=== PATIENT | female | born 1935 | race Caucasian/White ===

== ENCOUNTER → 2019-12-19 | Outpatient (REF) | payer MEDICARE, MEDICAID ==
[~2019-12-19] MED LIST: DEPA500T2; FURO40TA2; LUTEIN; OYST500T; PHEN30TA2; POTA10CA2; VITAMIN D50000 UNT
== END ==
LOC: M LAB REF 12:27
PROVIDERS: ATTEND Internal Medicine
DX: D64.9 Anemia, unspecified (principal)

== ENCOUNTER → 2020-06-20 | Outpatient (REF) | payer MEDICARE, MEDICAID ==
[2020-06-20 18:06] LABS: PERCENT SATURATION 51.2 % (13.2-45.0)
== END ==
LOC: M LAB REF 17:21
PROVIDERS: ATTEND Internal Medicine
DX: D50.9 Iron deficiency anemia, unspecified (principal)

== ENCOUNTER → 2020-08-05 | Outpatient (REF) | payer MEDICARE, MEDICAID ==
[2020-08-05 17:09] LABS: PERCENT SATURATION 47.9 % (13.2-45.0)
== END ==
LOC: M LAB REF 16:14
PROVIDERS: ATTEND Internal Medicine
DX: D50.9 Iron deficiency anemia, unspecified (principal)

== ENCOUNTER → 2020-09-05 | Outpatient (REF) | payer MEDICARE, MEDICAID | PROVIDERS: ATTEND Internal Medicine | DX: Z20.828 Contact with and (suspected) exposure to other viral communicable diseases (principal) ==

== ENCOUNTER → 2020-09-10 | Outpatient (REF) | payer MEDICARE, MEDICAID | PROVIDERS: ATTEND Internal Medicine | DX: Z20.828 Contact with and (suspected) exposure to other viral communicable diseases (principal) ==

== ENCOUNTER → 2020-09-15 | Outpatient (REF) | payer MEDICARE, MEDICAID | PROVIDERS: ATTEND Internal Medicine | DX: Z20.828 Contact with and (suspected) exposure to other viral communicable diseases (principal) ==

== ENCOUNTER → 2020-09-22 | Outpatient (REF) | payer MEDICARE, MEDICAID | PROVIDERS: ATTEND Internal Medicine | DX: Z20.828 Contact with and (suspected) exposure to other viral communicable diseases (principal) ==

== ENCOUNTER → 2020-09-29 | Outpatient (REF) | payer MEDICARE, MEDICAID | PROVIDERS: ATTEND Internal Medicine | DX: Z11.52 Encounter for screening for COVID-19 (principal) ==

== ENCOUNTER → 2020-10-06 | Outpatient (REF) | payer MEDICARE, MEDICAID | PROVIDERS: ATTEND Internal Medicine | DX: Z20.822 Contact with and (suspected) exposure to COVID-19 (principal) ==

== ENCOUNTER → 2020-10-13 | Outpatient (REF) | payer MEDICARE, MEDICAID | PROVIDERS: ATTEND Internal Medicine | DX: Z20.822 Contact with and (suspected) exposure to COVID-19 (principal) ==

== ENCOUNTER → 2020-10-20 | Outpatient (REF) | payer MEDICARE, MEDICAID | PROVIDERS: ATTEND Internal Medicine | DX: Z20.822 Contact with and (suspected) exposure to COVID-19 (principal) ==

== ENCOUNTER → 2020-10-27 | Outpatient (REF) | payer MEDICARE, MEDICAID | PROVIDERS: ATTEND Internal Medicine | DX: Z20.822 Contact with and (suspected) exposure to COVID-19 (principal) ==

== ENCOUNTER → 2020-11-03 | Outpatient (REF) | payer MEDICARE, MEDICAID | PROVIDERS: ATTEND Internal Medicine | DX: Z20.822 Contact with and (suspected) exposure to COVID-19 (principal) ==

== ENCOUNTER → 2020-11-10 | Outpatient (REF) | payer MEDICARE, MEDICAID | PROVIDERS: ATTEND Internal Medicine | DX: Z20.822 Contact with and (suspected) exposure to COVID-19 (principal) ==

== ENCOUNTER → 2020-11-27 | Outpatient (REF) | payer MEDICARE, MEDICAID ==
[2020-11-27 09:36] LABS: CALCIUM LEVEL 8.7 MG/DL (8.8-10.2); CREATININE FOR GFR 0.99 MG/DL (0.55-1.30); GLOMERULAR FILTRATION RATE 56.8 (>32); POTASSIUM SERUM 4.7 MEQ/L (3.5-5.1)
== END ==
PROVIDERS: ATTEND Internal Medicine
DX: F01.50 Vascular dementia, unspecified severity, without behavioral disturbance, psychotic disturbance, mood disturbance, and anxiety (principal); I13.0 Hypertensive heart and chronic kidney disease with heart failure and stage 1 through stage 4 chronic kidney disease, or unspecified chronic kidney disease; I50.9 Heart failure, unspecified; N18.9 Chronic kidney disease, unspecified

== ENCOUNTER → 2020-12-08 | Outpatient (REF) | payer MEDICAID, MEDICARE ==
[2020-12-08 09:06] LABS: BLOOD UREA NITROGEN 8 MG/DL (7-18); CALCIUM LEVEL 8.6 MG/DL (8.8-10.2); CARBON DIOXIDE LEVEL 28 MEQ/L (21-32); CHLORIDE LEVEL 95 MEQ/L (98-107); CREATININE FOR GFR 0.94 MG/DL (0.55-1.30); GLOMERULAR FILTRATION RATE > 60.0 (>32); GLUCOSE, FASTING 112 MG/DL (70-100); POTASSIUM SERUM 4.3 MEQ/L (3.5-5.1); SODIUM LEVEL 129 MEQ/L (136-145)
== END ==
PROVIDERS: ATTEND Internal Medicine
DX: Z79.899 Other long term (current) drug therapy (principal)

== ENCOUNTER 2020-12-21 17:51 | Inpatient (IN) | payer MEDICARE, MEDICAID ==
[~2020-12-21] VITALS: Ht 137.2 cm; Wt 69.0 kg
--- NOTE | 2020-12-21 20:33 | REPVR ---
PROCEDURE INFORMATION: Exam: CT Head Without Contrast Exam date and time: 12/21/2020 7:47 PM Age: 85 years old Clinical indication: Altered mental status/memory loss; Additional info: AMS TECHNIQUE: Imaging protocol: Computed tomography of the head without contrast. Radiation optimization: All CT scans at this facility use at least one of these dose optimization techniques: automated exposure control; mA and/or kV adjustment per patient size (includes targeted exams where dose is matched to clinical indication); or iterative reconstruction. COMPARISON: No relevant prior studies available. FINDINGS: Brain: There is advanced cerebral atrophy. Changes of chronic white matter microvascular disease are present. No signs of a recent infarction or hemorrhage. No acute intracranial abnormality. Cerebral ventricles: No ventriculomegaly. Bones/joints: Unremarkable. No acute fracture. Paranasal sinuses: Visualized sinuses are unremarkable. No fluid levels. Mastoid air cells: Visualized mastoid air cells are well aerated. Soft tissues: Unremarkable. IMPRESSION: Atrophy and chronic white matter changes. No acute intracranial abnormality. Electronically signed by: Ousmane Casper On 12/21/2020 20:33:19 PM
[2020-12-21 20:40] LABS: HEMATOCRIT 33.9 % (36.0-47.0); HEMOGLOBIN 11.2 g/dl (12.0-15.5); MEAN CORPUSCULAR HEMOGLOBIN 30.2 pg (27.0-33.0); MEAN CORPUSCULAR VOLUME 91.4 fl (80.0-96.0); PLATELET COUNT, AUTOMATED 265 10^3/uL (150-450); RED BLOOD COUNT 3.71 10^6/uL (4.00-5.40)
[2020-12-21 21:05] LABS: ALT/SGPT 35 U/L (12-78); BILIRUBIN,TOTAL 0.4 MG/DL (0.2-1.0); BLOOD UREA NITROGEN 8 MG/DL (7-18); CALCIUM LEVEL 8.3 MG/DL (8.8-10.2); CARBON DIOXIDE LEVEL 22 MEQ/L (21-32); CHLORIDE LEVEL 94 MEQ/L (98-107); CK-MB VALUE MASS 6.3 NG/ML (<3.6); CPK CREATINE PHOSPHOKINASE 425 U/L (26-192); CREATININE FOR GFR 0.82 MG/DL (0.55-1.30); GLOMERULAR FILTRATION RATE > 60.0 (>32); GLUCOSE, FASTING 85 MG/DL (70-100); MB/CK RELATIVE INDEX 1.48 (< OR =4); POTASSIUM SERUM 4.5 MEQ/L (3.5-5.1); SODIUM LEVEL 124 MEQ/L (136-145); TOTAL PROTEIN 6.6 GM/DL (6.4-8.2); TROPONIN I < 0.02 NG/ML (< 0.10)
[2020-12-21] MEDS ORDERED: OMEG10002 PO (22:27)
[2020-12-21] MEDS ORDERED: D31000TA2 PO (22:27)
[2020-12-21] MEDS ORDERED: FERR32TA PO (22:27)
[2020-12-21] MEDS ORDERED: APAP325T4 PO (22:27)
[2020-12-21] MEDS ORDERED: CARDCAP3 PO (22:27)
[2020-12-21] MEDS ORDERED: PRES10CA2 PO (22:27)
[2020-12-21] MEDS ORDERED: POTA10TA17 PO (22:27)
[2020-12-21] MEDS ORDERED: REFR0.5D8 OU (22:27)
[2020-12-21] MEDS ORDERED: FURO20TA2 PO (22:27)
[2020-12-21] MEDS ORDERED: FLON1SPR NARES (22:27)
[2020-12-21] MEDS ORDERED: ASPI81CH33 PO (22:27)
[2020-12-21] MEDS ORDERED: SENN-23 PO (22:27)
[2020-12-21] MEDS ORDERED: VANI1LOT TOP (22:27)
[2020-12-21] MEDS ORDERED: SPIR-10 PO (22:27)
[2020-12-21] MEDS ORDERED: LOSA25TA14 PO (22:27)
[2020-12-22] MEDS: NS 1,000 ML IV SCH ×3 (01:30→23:44)
[2020-12-22 02:35] LABS: RSV AMPLIFICATION NEGATIVE (NEGATIVE)
[2020-12-22] MEDS ORDERED: LABETALOL 100MG/20ML VIAL IV STA (03:38)
[2020-12-22] MEDS ORDERED: MOM 30ML SUSPENSION UDC PO PRN (04:00)
[2020-12-22] MEDS ORDERED: ACETAMINOPHEN TAB 650MG DOSE (2X325MG) PO PRN (04:00)
[2020-12-22] MEDS ORDERED: CAPTOpril 6.25 MG PER 1/2 TABLET PO ONE (04:00)
[2020-12-22] MEDS ORDERED: MAALOX 30 ML SUSP *UDC PO PRN (04:00)
[2020-12-22 04:17] LABS: OSMOLALITY SERUM 257 MOSM/KG (280-301)
[2020-12-22 05:18] VITALS: BP 191/79
[2020-12-22] MEDS ORDERED: CAPTOpril 3.125 MG PER 1/4 TABLET PO ONE (05:40)
--- NOTE | 2020-12-22 07:08 | HPEPDOC ---
[facility] Medical History & Physical Date of Admission Dec 22, 2020 Date of Service: Dec 22, 2020 Primary Care Physician: MONROE CHEN DO Attending Physician: LUIS ALY MD History and Physical TIME OF SERVICE: 419am CHIEF COMPLAINT: confusion HISTORY OF PRESENT ILLNESS: This 85 yr old F was sent from her NH for evaluation of confusion when compared to her baseline that begun yesterday; apparently the patient had also had a fall 3 days prior and her serum glucose was 155. At the time of my evaluation the patient told me that she didnt know why she was sent from the [place]. She denied having any chest pain, dyspnea or dizziness. Per d/w the ER her SBP was acutely elevated in the 200s so the patient was given Labetalol. 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 FAMILY HISTORY: n/a ALLERGIES: Please see below. HOME MEDICATIONS: Please see below. PHYSICAL EXAMINATION: Vital Signs Date Time Temp Pulse Resp B/P (MAP) Pulse Ox O2 Delivery O2 Flow Rate FiO2 12/21/20 17:57 95.8 81 16 201/84 97 Room Air GENERAL APPEARANCE: well nourished and developed / NAD HEENT: EOMI CARDIOVASCULAR: RRR/NMRG LUNGS: CTAB on RA ABDOMEN: obese / soft & NT INTEGUMENT: not flushed or pale NEUROLOGICAL: CN 2-12 grossly intact / strength 5/5 PSYCHIATRIC: A&O to person and place /able to understand and follow all commands LABORATORY DATA: 12/21/20 19:56 IMAGING: CT head IMPRESSION: Atrophy and chronic white matter changes. No acute intracranial abnormality. EKG showed 1st degree AV block w PVCs MICROBIOLOGY: COVID neg ASSESSMENT: is an 85 yr old [facility] resident w hx of HTN, seizure disorder, osteopenia and macular degeneration and likely dementia was sent from the [place] for eval of encephalopathy. She will be admitted for HTN urgency, acute on chronic hyponatremia and possible confusion. PLAN: 1 Encephalopathy ? I am not sure what the patients baseline is but she was able to tell me where she was and admitted to forgetting frequently It is possible the AMS was due to HTN encephalopathy CT of the head was neg Plan: neurochecks / day time team may consider calling the NH for more info prior to MRI of the brain +/- EEG 2 HTN Urgency Resolved EKG and trop unremarkable She received labetalol and captopril Plan: c/w Furosemide, Losartan, Spironolactone and add Amlodipine 3 Acute on Chronic Hyponatremia Doubt this is the cause of her AMS She is alert and able to talk She has a hx of low Na therefore there is no need to correct quickly Plan: f/u Uosmol, Edie and serum osmol prior to determine the cause and correcting 4 BLAKE Plan: f/u Hg 5 Remote hx of seizures Not no meds 6 Osteopenia Plan: c/w vitamin d DVT px w Lovenox Dispo: home after at least 2 midnights stay Home Medications Scheduled Amlodipine Besylate (Amlodipine Besylate) 2.5 Mg Tablet, 2.5 MG PO DAILY Aspirin (Aspirin) 81 Mg Tab.chew, 81 MG PO QAM Carboxymethylcellulose Sodium (Refresh Tears) 15 Ml Drops, 1 DROP OU QID Cholecalciferol (Vitamin D3) (Vitamin D3) 1,000 Unit Tablet, 1,000 UNITS PO QAM Emollient Combination No.115 (Vanicream) 227 Gm Lotion, 1 DOSE TOP BID LOWER LEGS Ferrous Gluconate (Ferrous Gluconate) 324 Mg Tablet, 324 MG PO Q2D Losartan Potassium (Losartan Potassium) 25 Mg Tablet, 25 MG PO QAM Mv-Min/Folic/Vit K/Lycop/Coq10 (Daily Multivitamin Capsule) 1 Each Capsule, 1 CAP PO QAM [place]-3/Dha/Epa/Fish Oil (Fish Oil 1,000 mg Softgel) 1 Each Capsule, 1 CAP PO QHS Potassium Chloride (Potassium Chloride) 10 Meq Tab.er.prt, 10 MEQ PO QPM Sennosides/Docusate Sodium (Senna-S Tablet) 1 Each Tablet, 1 TAB PO QAM Spironolactone (Spironolactone) 25 Mg Tablet, 12.5 MG PO DAILY Vit C/E/Zn/Coppr/Lutein/Zeaxan (Preservision Areds 2 Softgel) 1 Each Capsule, 2 CAP PO DAILY Scheduled PRN Acetaminophen (Acetaminophen) 325 Mg Tablet, 650 MG PO Q6H PRN for PAIN Fluticasone Propionate (Flonase Allergy Relief) 9.9 Ml [place].susp, 2 SPRAY NARES DAILY PRN for ALLERGIES Allergies Coded Allergies: No Known Allergies (Unverified , 12/21/20) LUIS ALY MD Dec 22, 2020 07:08
[2020-12-22 07:40] VITALS: BP 195/77
[2020-12-22] MEDS ORDERED: FLUTICASONE PROP 0.05% NASAL SPRAY 16 GM (FLONASE) NARES PRN (08:00)
[2020-12-22 08:45] VITALS: BP 148/60
[2020-12-22] MEDS ORDERED: FUROSEMIDE 20 MG TAB PO SCH (09:00)
[2020-12-22] MEDS: ENOXAPARIN 30MG/0.3ML SYRINGE (J1650 PER 10MG) SC SCH (09:33)
[2020-12-22] MEDS: SPIRONOLACTONE 12.5MG PER 1/2 TABLET PO SCH (09:34)
[2020-12-22] MEDS: SENOKOT S TAB PO SCH (09:34)
[2020-12-22 12:00] VITALS: BP 151/69
--- NOTE | 2020-12-22 13:56 | IPNPDOC ---
Text Note Date of Service The patient was seen on 12/22/20. NOTE Patient was seen and examined this morning by me. She's seems like to be at her baseline, conversing nicely and alert, oriented to place and person Physical examination GENERAL APPEARANCE: well nourished and developed / NAD HEENT: EOMI CARDIOVASCULAR: RRR/NMRG LUNGS: CTAB on RA ABDOMEN: obese / soft & NT INTEGUMENT: not flushed or pale NEUROLOGICAL: CN 2-12 grossly intact / strength 5/5 PSYCHIATRIC: A&O to person and place and person /able to understand and follow all commands IMAGING: CT head IMPRESSION: Atrophy and chronic white matter changes. No acute intracra nial abnormality. EKG showed 1st degree AV block w PVCs MICROBIOLOGY: COVID neg Assessment and plan is an 85 yr old [facility] resident w hx of HTN, seizure disorder, osteopenia and macular degeneration and likely dementia was sent from the [place] for eval of encephalopathy. She will be admitted for an hyponatremia Likely Metabolic Secondary to Hyponatremia and Hypertensive Urgency 1. Encephalopathy : Likely metabolic. Could be multifactorial. The patient at the start of November 2020 was having a sodium of 129 and on this admission. The patient had a sodium of 123. This could have been a reason for her encephalopathy. The other reason, could have been. Hypertensive urgency. Other causes like infection, drug-induced have been ruled out. We will address individual cause 2. HTN Urgency: Manual glucose checks showing that the patient's blood pressures in 140s. She has been continued on losartan, Aldactone and amlodipine. Her Lasix has been on hold. We'll continue to monitor. 3. Acute on Chronic Hyponatremia: Serum osmolarity is almost equal to urine osmolarity. Apparently the kidneys are not diluting the urine well. Urine sodium is also in normal range. This likely secondary to diuretic use along with dopplerable low solute intake with normal fluid intake. Currently, the patient has been put on normal saline at 60 mL per hour and the patient's sodium has improved from 123-127. We will continue to hold furosemide at this time. 4 Remote hx of seizures: Outpatient follow-up with PCP Not no meds 5. Osteopenia: Plan: c/w vitamin d The patient has been on Lasix as well as spironolactone and we will look into that reason of these medications. Apparently he does not seem like that she has any congestive heart failure issues. Patient probably will be discharged back to the skilled nursing with Lasix being discontinued. Disposition. Back to the skilled nursing in the next 24 hours VSLeandra, I+O VSLeandra, I+O Laboratory Tests 12/21/20 19:56 12/22/20 12:00 Vital Signs Date Time Temp Pulse Resp B/P (MAP) Pulse Ox O2 Delivery O2 Flow Rate FiO2 12/22/20 12:00 97.4 74 19 151/69 (96) 98 Room Air I&O- Last 24 Hours up to 6 AM 12/22/20 05:59 Intake Total 1000 ml Output Total 850 ml Balance 150 ml MIKE ODOM MD Dec 22, 2020 13:55
[2020-12-22 16:00] VITALS: BP 155/70
--- NOTE | 2020-12-22 19:55 | ECGEPIP ---
[facility] - ED Test Date: 2020-12-21 Pat Name: ARISTEO TOURE Department: Room: [place] [address] Gender: Female [employer]: GURU : 1935 Requested By: Guillermo Kirkpatrick Order Number: [id number] Reading MD: Hannah Acevedo Measurements Intervals [place] Rate: 77 P: 0 FL: 262 QRS: 33 QRSD: 84 T: 44 QT: 362 QTc: 409 Interpretive Statements Sinus rhythm with 1st degree AV block with occasional premature ventricular complexes No prior Electronically Signed on 12-22-2020 19:55:34 EDT by Hannah Acevedo
[2020-12-22 20:00] VITALS: BP 142/69
[2020-12-22] MEDS: OMEGA-3 1000MG CAPSULE PO SCH ×2 (20:03→20:04)
[2020-12-22] MEDS ORDERED: POTASSIUM CHLORIDE 10 MEQ SR TABLET PO SCH (21:00)
[2020-12-23 08:00] VITALS: BP 124/62
[2020-12-23 08:06] LABS: HEMATOCRIT 32.2 % (36.0-47.0); HEMOGLOBIN 10.9 g/dl (12.0-15.5); MEAN CORPUSCULAR HGB CONC 33.9 g/dl (32.0-36.5); MEAN CORPUSCULAR VOLUME 88.7 fl (80.0-96.0); PLATELET COUNT, AUTOMATED 274 10^3/uL (150-450); RED BLOOD COUNT 3.63 10^6/uL (4.00-5.40); WHITE BLOOD COUNT 5.7 10^3/uL (4.0-10.0)
[2020-12-23] MEDS: LOSARTAN 25 MG TAB PO SCH (08:29)
[2020-12-23] MEDS: SPIRONOLACTONE 12.5MG PER 1/2 TABLET PO SCH (08:29)
[2020-12-23] MEDS: SENOKOT S TAB PO SCH (08:29)
[2020-12-23] MEDS: ENOXAPARIN 30MG/0.3ML SYRINGE (J1650 PER 10MG) SC SCH (08:30)
[2020-12-23 08:32] LABS: BLOOD UREA NITROGEN 8 MG/DL (7-18); CALCIUM LEVEL 7.8 MG/DL (8.8-10.2); CARBON DIOXIDE LEVEL 21 MEQ/L (21-32); CHLORIDE LEVEL 99 MEQ/L (98-107); GLOMERULAR FILTRATION RATE > 60.0 (>32); GLUCOSE, FASTING 130 MG/DL (70-100); POTASSIUM SERUM 3.9 MEQ/L (3.5-5.1); SODIUM LEVEL 130 MEQ/L (136-145)
--- NOTE | 2020-12-23 11:22 | IPNPDOC ---
Text Note Date of Service The patient was seen on 12/23/20. NOTE Patient was seen and examined this morning by me. She's seems like to be at her baseline, conversing nicely and alert, oriented to place and person Physical examination GENERAL APPEARANCE: well nourished and developed / NAD HEENT: EOMI CARDIOVASCULAR: RRR/NMRG LUNGS: CTAB on RA ABDOMEN: obese / soft & NT INTEGUMENT: not flushed or pale NEUROLOGICAL: CN 2-12 grossly intact / strength 5/5 PSYCHIATRIC: A&O to person and place and person /able to understand and follow all commands IMAGING: CT head IMPRESSION: Atrophy and chronic white matter changes. No acute intracra nial abnormality. EKG showed 1st degree AV block w PVCs MICROBIOLOGY: COVID neg Assessment and plan is an 85 yr old [facility] resident w hx of HTN, seizure disorder, osteopenia and macular degeneration and likely dementia was sent from the [place] for eval of encephalopathy. She will be admitted for an hyponatremia Likely Metabolic Secondary to Hyponatremia and Hypertensive Urgency 1. Encephalopathy : Improved and now at baseline Likely metabolic. Could be multifactorial. The patient at the start of November 2020 was having a sodium of 129 and on this admission. The patient had a sodium of 123. This could have been a reason for her encephalopathy. The other reason, could have been. Hypertensive urgency. Other causes like infection, drug-induced have been ruled out. We will address individual cause 2. HTN Urgency: Manual glucose checks showing that the patient's blood pr essures in 140s. She has been continued on losartan, Aldactone and amlodipine. Her Lasix has been on hold. We'll continue to monitor. 3. Acute on Chronic Hyponatremia: No improved to 1:30. Serum osmolarity is almost equal to urine osmolarity. Apparently the kidneys are not diluting the urine well. Urine sodium is also in normal range. This likely secondary to diuretic use along with dopplerable low solute intake with normal fluid intake. Currently, the patient has been put on normal saline at 60 mL per hour and the patient's sodium has improved from 123-127. We will continue to hold furosemide at this time. We will also DC fluids today. 4 Remote hx of seizures: Outpatient follow-up with PCP Not no meds 5. Osteopenia: Plan: c/w vitamin d The patient has been on Lasix as well as spironolactone and we will look into that reason of these medications. Apparently he does not seem like that she has any congestive heart failure issues. Patient probably will be discharged back to the [place] [facility] with Lasix being discontinued. Disposition. As PT, OT has seen the patient and the patient probably will require skilled facility. She'll be going back to [facility] hopefully tomorrow VS,Fishbone, I+O VS, Fishbone, I+O Laboratory Tests 12/22/20 12:00 12/22/20 17:55 12/23/20 07:39 Vital Signs Date Time Temp Pulse Resp B/P (MAP) Pulse Ox O2 Delivery O2 Flow Rate FiO2 12/23/20 08:30 71 124/62 12/23/20 08:00 98.3 18 98 Room Air I&O- Last 24 Hours up to 6 AM 12/23/20 05:59 Intake Total 2528 ml Output Total 800 ml Balance 1728 ml MIKE ODOM MD Dec 23, 2020 11:22
[2020-12-23 12:00] VITALS: BP 160/82
[2020-12-23 16:00] VITALS: BP 148/78
[2020-12-23 20:00] VITALS: BP 204/70
[2020-12-23] MEDS: OMEGA-3 1000MG CAPSULE PO SCH (20:07)
[2020-12-23] MEDS ORDERED: LABETALOL 100MG/20ML VIAL IV STA (20:18)
[2020-12-23 21:44] VITALS: BP 160/72
[2020-12-24 04:11] VITALS: BP 158/60
[2020-12-24 08:00] VITALS: BP 120/50
[2020-12-24] MEDS: ENOXAPARIN 30MG/0.3ML SYRINGE (J1650 PER 10MG) SC SCH (08:36)
[2020-12-24] MEDS: SENOKOT S TAB PO SCH (08:36)
[2020-12-24 08:37] VITALS: BP 120/50
[2020-12-24] MEDS: LOSARTAN 25 MG TAB PO SCH (08:37)
[2020-12-24] MEDS: SPIRONOLACTONE 12.5MG PER 1/2 TABLET PO SCH (08:38)
[2020-12-24] MEDS ORDERED: AMLO25TA PO (10:39)
--- NOTE | 2020-12-24 11:04 | DS.PDOC ---
Discharge Summary General Date of Admission Dec 22, 2020 at 04:00 Date of Discharge 12/24/20 Discharge Summary Chief complaints: Alteration in mental status Final diagnosis 1. Symptomatic hyponatremia 2. Alteration in mental status History of present illness and Hospital course is an 85 yr old [facility] resident w hx of HTN, seizure disorder, osteopenia and macular degeneration and likely dementia was sent from the [place] for eval of encephalopathy. She will be admitted for an encephalopathy likely Metabolic Secondary to Hyponatremia and Hypertensive Urgency. For her Encephalopathy : Improved and now at baseline Likely metabolic. Could be multifactorial. The patient at the start of November 2020 was having a sodium of 129 and on this admission. The patient had a sodium of 123. This could have been a reason for her encephalopathy. The other reason, could have been. Hypertensive urgency. Other causes like infection, drug-induced have been ruled out. We addressed individual cause. For her HTN urgency: Manual pressure checks showing that the patient's blood pressures in 140s. She has been continued on losartan, Aldactone and amlodipine has been admitted. Her Lasix has been on hold, and currently has been discontinued on discharge. For her acute on chronic Hyponatremia: Now improved to 130. Serum osmolarity is almost equal to urine osmolarity. Apparently the kidneys are not diluting the urine well. Urine sodium is also in normal range. This likely secondary to diuretic use along with probable low solute intake with normal fluid intake. Currently, the patient was put on normal saline at 60 mL per hour and the patient's sodium has improved from 123-130. We will continue to hold furosemide at this time. I have conveyed this message to Dr. Escobedo who will be the accepting physician at [facility] regarding the medication changes and to see if the patient would require continuation of Lasix. The patient was also evaluated by PT, OT and they recommended the patient to go to skilled facility rather than the assisted site. The patient is medically optimized for discharge Physical examination GENERAL APPEARANCE: well nourished and developed / NAD HEENT: EOMI CARDIOVASCULAR: RRR/NMRG LUNGS: CTAB on RA ABDOMEN: obese / soft & NT INTEGUMENT: not flushed or pale NEUROLOGICAL: CN 2-12 grossly intact / strength 5/5 PSYCHIATRIC: A&O to person and place and person /able to understand and follow all commands IMAGING: CT head IMPRESSION: Atrophy and chronic white matter changes. No acute intracranial abnormality. EKG showed 1st degree AV block w PVCs MICROBIOLOGY: COVID neg Medictations. As per discharge reconciliation medication list. Lasix has been discontinued Activity as tolerated Diet. 2 g sodium diet Follow-up appointments. PCP in 1 week. Condition on discharge. Patient is medically optimized for discharge Discharge disposition: SS Total time spent on this discharge including coordination of care, review of chart documentation and actual patient contact is around 35 minutes Vital Signs/I&Os Vital Signs Date Time Temp Pulse Resp B/P (MAP) Pulse Ox O2 Delivery O2 Flow Rate FiO2 12/24/20 08:37 81 120/50 12/24/20 08:00 97.2 20 98 Room Air I&O- Last 24 Hours up to 6 AM 12/24/20 06:00 Intake Total 1020 ml Output Total 600 ml Balance 420 ml Laboratory Data CBC/BMP Laboratory Tests 12/23/20 12:12 Microbiology Microbiology 12/21/20 Blood Culture - Preliminary, Resulted No Growth after 48 hours. All Specime... Discharge Medications Scheduled Amlodipine Besylate (Amlodipine Besylate) 2.5 Mg Tablet, 2.5 MG PO DAILY Aspirin (Aspirin) 81 Mg Tab.chew, 81 MG PO QAM, (Reported) Carboxymethylcellulose Sodium (Refresh Tears) 15 Ml Drops, 1 DROP OU QID, (Reported) Cholecalciferol (Vitamin D3) (Vitamin D3) 1,000 Unit Tablet, 1,000 UNITS PO QAM, (Reported) Emollient Combination No.115 (Vanicream) 227 Gm Lotion, 1 DOSE TOP BID, (Reported) LOWER LEGS Ferrous Gluconate (Ferrous Gluconate) 324 Mg Tablet, 324 MG PO Q2D, (Reported) Losartan Potassium (Losartan Potassium) 25 Mg Tablet, 25 MG PO QAM, (Reported) Mv-Min/Folic/Vit K/Lycop/Coq10 (Daily Multivitamin Capsule) 1 Each Capsule, 1 CAP PO QAM, (Reported) [place]-3/Dha/Epa/Fish Oil (Fish Oil 1,000 mg Softgel) 1 Each Capsule, 1 CAP PO QHS, (Reported) Potassium Chloride (Potassium Chloride) 10 Meq Tab.er.prt, 10 MEQ PO QPM, (Reported) Sennosides/Docusate Sodium (Senna-S Tablet) 1 Each Tablet, 1 TAB PO QAM, (Reported) Spironolactone (Spironolactone) 25 Mg Tablet, 12.5 MG PO DAILY, (Reported) Vit C/E/Zn/Coppr/Lutein/Zeaxan (Preservision Areds 2 Softgel) 1 Each Capsule, 2 CAP PO DAILY, (Reported) Scheduled PRN Acetaminophen (Acetaminophen) 325 Mg Tablet, 650 MG PO Q6H PRN for PAIN, (Reported) Fluticasone Propionate (Flonase Allergy Relief) 9.9 Ml [place].susp, 2 SPRAY NARES DAILY PRN for ALLERGIES, (Reported) Allergies Coded Allergies: No Known Allergies (Unverified , 12/21/20) MIKE ODOM MD Dec 24, 2020 11:04
== END 2020-12-24 11:44 | DRG 71 ==
LOC: EDBD 17:51 → M ED 17:51 → M PCU 12-22 04:00 → M ED INP 12-22 04:00 → ENRESERV 12-22 04:28 → M PCU 12-22 05:07
PROVIDERS: ADMIT Internal Medicine; ATTEND Internal Medicine
DX: G93.41 Metabolic encephalopathy (principal); E87.1 Hypo-osmolality and hyponatremia; I16.0 Hypertensive urgency; M85.80 Other specified disorders of bone density and structure, unspecified site; H35.30 Unspecified macular degeneration; D50.9 Iron deficiency anemia, unspecified; F03.90 Unspecified dementia, unspecified severity, without behavioral disturbance, psychotic disturbance, mood disturbance, and anxiety; I44.0 Atrioventricular block, first degree; Z86.69 Personal history of other diseases of the nervous system and sense organs; Z20.822 Contact with and (suspected) exposure to COVID-19; Z79.899 Other long term (current) drug therapy; Z98.42 Cataract extraction status, left eye; Z98.41 Cataract extraction status, right eye; Z66 Do not resuscitate

== ENCOUNTER → 2021-01-06 | Outpatient (REF) ==
[~2021-01-06] MED LIST changes: +AMLO25TA PO; +APAP325T4 PO; +ASPI81CH33 PO; +CARDCAP3 PO; +D31000TA2 PO; +FERR32TA PO; +FLON1SPR NARES; +FURO20TA2 PO; +LOSA25TA14 PO; +OMEG10002 PO; +POTA10TA17 PO; +PRES10CA2 PO; +REFR0.5D8 OU; +SENN-23 PO; +SPIR-10 PO; +VANI1LOT TOP
== END ==
PROVIDERS: ATTEND Internal Medicine
DX: Z20.822 Contact with and (suspected) exposure to COVID-19 (principal)

== ENCOUNTER → 2021-01-13 | Outpatient (REF) | payer MEDICARE, MEDICAID ==
[~2021-01-13] MED LIST changes: +ASPI81TA26 PO; +BENE1POW5 PO; +KEPP250T5 PO; +LASI20TA3 PO; +LEVE250T5 PO; +MILKSUS3 PO; +SENN1TAB41 PO; +VITMTA PO
== END ==
PROVIDERS: ATTEND Internal Medicine
DX: Z20.822 Contact with and (suspected) exposure to COVID-19 (principal)

== ENCOUNTER 2021-01-18 06:54 | Emergency (ER) | payer MEDICARE, MEDICAID ==
[~2021-01-18] VITALS: Ht 157.5 cm; Wt 62.3 kg
[~2021-01-18 06:54] MED LIST changes: -ASPI81TA26 PO; -BENE1POW5 PO; -KEPP250T5 PO; -LASI20TA3 PO; -LEVE250T5 PO; -MILKSUS3 PO; -SENN1TAB41 PO; -VITMTA PO
[2021-01-18 07:28] LABS: BASO % 0.5 % (0.0-1.0); EOS % 0.6 % (0.0-3.0); HEMATOCRIT 35.1 % (36.0-47.0); HEMOGLOBIN 11.4 g/dl (12.0-15.5); LYMPH # 0.8 10^3/uL (1.5-5.0); LYMPH % 11.8 % (24.0-44.0); MEAN CORPUSCULAR HEMOGLOBIN 29.5 pg (27.0-33.0); MEAN CORPUSCULAR HGB CONC 32.5 g/dl (32.0-36.5); MEAN CORPUSCULAR VOLUME 90.9 fl (80.0-96.0); MONO # 0.6 10^3/uL (0.0-0.8); MONO % 8.7 % (2.0-8.0); NEUTROPHILS # 5.1 10^3/uL (1.5-8.5); NEUTROPHILS % 78.1 % (36.0-66.0); PLATELET COUNT, AUTOMATED 289 10^3/uL (150-450); RED BLOOD COUNT 3.86 10^6/uL (4.00-5.40); WHITE BLOOD COUNT 6.6 10^3/uL (4.0-10.0)
[2021-01-18] MEDS ORDERED: ASPI81TA26 PO (07:41)
[2021-01-18] MEDS ORDERED: LASI20TA3 PO (07:41)
[2021-01-18] MEDS ORDERED: BENE1POW5 PO (07:41)
[2021-01-18] MEDS ORDERED: SENN1TAB41 PO (07:41)
[2021-01-18] MEDS ORDERED: VITMTA PO (07:41)
[2021-01-18] MEDS ORDERED: MILKSUS3 PO (07:41)
[2021-01-18] MEDS ORDERED: SENN-23 PO (07:41)
[2021-01-18] MEDS ORDERED: LOSARTAN 25 MG TAB PO ONE (07:50)
[2021-01-18] MEDS ORDERED: FUROSEMIDE 20 MG TAB PO ONE (07:50)
[2021-01-18] MEDS ORDERED: SPIRONOLACTONE 12.5MG PER 1/2 TABLET PO ONE (07:50)
[2021-01-18 07:58] LABS: ALT/SGPT 21 U/L (12-78); BILIRUBIN,DIRECT 0.1 MG/DL (0.0-0.2); BILIRUBIN,TOTAL 0.4 MG/DL (0.2-1.0); BLOOD UREA NITROGEN 9 MG/DL (7-18); CALCIUM LEVEL 8.3 MG/DL (8.8-10.2); CARBON DIOXIDE LEVEL 25 MEQ/L (21-32); CHLORIDE LEVEL 95 MEQ/L (98-107); CK-MB VALUE MASS 1.8 NG/ML (<3.6); CPK CREATINE PHOSPHOKINASE 52 U/L (26-192); CREATININE FOR GFR 0.86 MG/DL (0.55-1.30); GLOMERULAR FILTRATION RATE > 60.0 (>32); GLUCOSE, FASTING 103 MG/DL (70-100); MB/CK RELATIVE INDEX 3.46 (< OR =4); POTASSIUM SERUM 4.3 MEQ/L (3.5-5.1); SODIUM LEVEL 129 MEQ/L (136-145); TOTAL PROTEIN 6.6 GM/DL (6.4-8.2); TROPONIN I < 0.02 NG/ML (< 0.10)
[2021-01-18 08:01] VITALS: BP 184/79
[2021-01-18 08:05] LABS: APPEARANCE, URINE CLEAR (CLEAR); BACTERIA, URINE AUTO NEGATIVE (NEGATIVE); BILIRUBIN, URINE AUTO NEGATIVE (NEGATIVE); BLOOD, URINE BLOOD NEGATIVE (NEGATIVE); COLOR, URINE YELLOW (YELLOW); GLUCOSE, URINE (UA) AUTO NEGATIVE (NEGATIVE); KETONE, URINE AUTO TRACE mg/dL (NEGATIVE); LEUKOCYTE ESTERASE, URINE AUTO TRACE (NEGATIVE); MUCUS, URINE SMALL (NEGATIVE); NITRITE, URINE AUTO NEGATIVE (NEGATIVE); PROTEIN, URINE AUTO 1+ mg/dL (NEGATIVE); RBC, URINE AUTO 1 /HPF (0-3); SPECIFIC GRAVITY URINE AUTO 1.011 (1.002-1.035); SQUAMOUS EPITHELIAL CELL UR AU 0 /HPF (0-6); UROBILINOGEN, URINE AUTO 0.2 mg/dL (0.0-2.0); WBC, URINE AUTO 8 /HPF (0-3)
--- NOTE | 2021-01-18 08:22 | REPVR ---
PROCEDURE INFORMATION: Exam: CT Head Without Contrast Exam date and time: 01/18/2021 7:47 AM Age: 85 years old Clinical indication: Altered mental status/memory loss; Confusion or disorientation; Additional info: AMS TECHNIQUE: Imaging protocol: Computed tomography of the head without contrast. Radiation optimization: All CT scans at this facility use at least one of these dose optimization techniques: automated exposure control; mA and/or kV adjustment per patient size (includes targeted exams where dose is matched to clinical indication); or iterative reconstruction. COMPARISON: CT Head without contrast 12/21/2020 7:47 PM FINDINGS: Brain: There is low attenuation abnormality in the periventricular white matter consistent with chronic microvascular ischemic changes. There are chronic lacunar infarcts. There is moderate cerebral atrophy. Cerebral ventricles: No ventriculomegaly. Bones/joints: Unremarkable. No acute fracture. Paranasal sinuses: Visualized sinuses are unremarkable. No fluid levels. Mastoid air cells: Visualized mastoid air cells are well aerated. Vasculature: There is moderate intracranial vascular calcification. Soft tissues: Unremarkable. IMPRESSION: 1. There is low attenuation abnormality in the periventricular white matter consistent with chronic microvascular ischemic changes. If an acute infarct is a clinical concern, follow-up MRI with diffusion imaging is recommended. 2. There are chronic lacunar infarcts. 3. There is moderate cerebral atrophy. Electronically signed by: Randall Rojas On 01/18/2021 08:21:35 AM
[2021-01-18] MEDS ORDERED: KEPP250T5 PO (09:59)
[2021-01-18] MEDS ORDERED: levETIRAcetam INJection 250 MG in D5W MINI-BAG PLUS 100 ML IV ONE (10:00)
[2021-01-18 10:53] VITALS: BP 178/74
--- NOTE | 2021-01-18 11:52 | ECGEPIP ---
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
[2021-01-19] MEDS ORDERED: LEVE250T5 PO (14:07)
== END 2021-01-18 10:55 | disposition home or self-care (01) ==
LOC: M ED 06:54
DX: R40.4 Transient alteration of awareness (principal); I10 Essential (primary) hypertension; F03.90 Unspecified dementia, unspecified severity, without behavioral disturbance, psychotic disturbance, mood disturbance, and anxiety

== ENCOUNTER 2021-01-19 13:14 | Inpatient (IN) | payer MEDICARE, MEDICAID ==
[~2021-01-19] VITALS: Ht 157.5 cm; Wt 58.5 kg
[~2021-01-19 13:14] MED LIST changes: +ASPI81TA26 PO; +BENE1POW5 PO; +KEPP250T5 PO; +LASI20TA3 PO; +MILKSUS3 PO; +SENN1TAB41 PO; +VITMTA PO
[2021-01-19] MEDS ORDERED: LEVE250T5 PO (14:07)
--- NOTE | 2021-01-19 14:14 | REP ---
INDICATION: Altered Mental Status. COMPARISON: Comparison CT studies are from January 18, 2021 and December 21, 2020.. TECHNIQUE: Helical scanning is acquired. 5 mm axial images were reformatted. Coronal MPR images were generated. FINDINGS: Bone window settings demonstrate an intact bony calvarium. There is no evidence of skull fracture or incidental bony calvarial lesion. The visualized paranasal sinuses appear clear. No intraorbital abnormality is seen. On soft tissue window setting images; the lateral, third, and fourth ventricles are normal in size and position. Francis-white differentiation pattern is normal above and below the tentorium. There are is no evidence of intracranial hemorrhage. No mass, edema, infarction, or midline shift is seen. No extra-axial fluid collection is appreciated. Vascular calcification is noted in the distal internal carotid arteries bilaterally. There is advanced generalized volume loss. Old encephalomalacia is evident in the left frontal lobe consistent with an 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 This is unchanged from comparison CT studies. There are small vessel atherosclerotic changes. IMPRESSION: Old left frontal lobe infarct. Advanced generalized volume loss. Small vessel changes and vascular calcification. No acute intracranial abnormality.. <Electronically signed by Benja Hoskins > 01/19/21 [id number]
[2021-01-19 14:20] LABS: BASO % 0.3 % (0.0-1.0); EOS # 0.1 10^3/uL (0.0-0.5); EOS % 1.4 % (0.0-3.0); HEMATOCRIT 35.6 % (36.0-47.0); HEMOGLOBIN 11.7 g/dl (12.0-15.5); LYMPH # 1.1 10^3/uL (1.5-5.0); LYMPH % 16.8 % (24.0-44.0); MEAN CORPUSCULAR HEMOGLOBIN 30.3 pg (27.0-33.0); MEAN CORPUSCULAR HGB CONC 32.9 g/dl (32.0-36.5); MEAN CORPUSCULAR VOLUME 92.2 fl (80.0-96.0); MONO # 0.8 10^3/uL (0.0-0.8); NEUTROPHILS # 4.3 10^3/uL (1.5-8.5); NEUTROPHILS % 68.2 % (36.0-66.0); PLATELET COUNT, AUTOMATED 272 10^3/uL (150-450); RED BLOOD COUNT 3.86 10^6/uL (4.00-5.40); WHITE BLOOD COUNT 6.3 10^3/uL (4.0-10.0)
--- NOTE | 2021-01-19 14:30 | REP ---
INDICATION: Altered Mental Status. COMPARISON: Comparison chest radiograph April 08, 2010. TECHNIQUE: Portable upright AP chest radiograph. FINDINGS: Monitoring electrodes are visible. The lungs are symmetrically somewhat underinflated but free of infiltrate. There is linear fibrosis in the left perihilar region unchanged. There is diffuse osteopenia. Heart size is borderline. Thoracic aorta is tortuous.. IMPRESSION: No acute infiltrates seen. Linear fibrosis left perihilar region. Borderline heart size. Otherwise no acute disease.. <Electronically signed by Benja Hoskins > 01/19/21 [id number]
[2021-01-19 15:10] LABS: ACETAMINOPHEN LEVEL < 2.0 UG/ML (10.0-30.0); ALT/SGPT 21 U/L (12-78); BILIRUBIN,DIRECT 0.1 MG/DL (0.0-0.2); BILIRUBIN,TOTAL 0.3 MG/DL (0.2-1.0); BLOOD UREA NITROGEN 10 MG/DL (7-18); CALCIUM LEVEL 8.6 MG/DL (8.8-10.2); CARBON DIOXIDE LEVEL 28 MEQ/L (21-32); CHLORIDE LEVEL 96 MEQ/L (98-107); CK-MB VALUE MASS 2.6 NG/ML (<3.6); CPK CREATINE PHOSPHOKINASE 73 U/L (26-192); CREATININE FOR GFR 1.08 MG/DL (0.55-1.30); ETHYL ALCOHOL (ETHANOL) < 0.003 % (0.000-0.010); GLOMERULAR FILTRATION RATE 51.3 (>32); GLUCOSE, FASTING 95 MG/DL (70-100); MB/CK RELATIVE INDEX 3.56 (< OR =4); POTASSIUM SERUM 4.2 MEQ/L (3.5-5.1); SALICYLATE LEVEL < 1.7 MG/DL (5.0-30.0); SODIUM LEVEL 130 MEQ/L (136-145); TOTAL PROTEIN 6.5 GM/DL (6.4-8.2); TROPONIN I < 0.02 NG/ML (< 0.10)
[2021-01-19] MEDS ORDERED: ISOVUE-370 76% 100ML VIAL As Ordered ONE (15:51)
[2021-01-19 16:03] LABS: AMPHETAMINES LEVEL URINE NEGATIVE (NEGATIVE); BARBITURATES URINE NEGATIVE (NEGATIVE); BENZODIAZEPINES URINE NEGATIVE (NEGATIVE); CANNABINOIDS URINE NEGATIVE (NEGATIVE); COCAINE METABOLITE URINE NEGATIVE (NEGATIVE); METHADONE URINE NEGATIVE (NEGATIVE); OPIATES URINE NEGATIVE (NEGATIVE); PHENCYCLIDINE URINE NEGATIVE (NEGATIVE)
--- NOTE | 2021-01-19 17:34 | HPEPDOC ---
General Date of Admission 01/19/21 Date of Service: Jan 19, 2021 Chief Complaint The patient is a 85-year-old female admitted with a reason for visit of [facility]. Source: RN/, Old records History of Present Illness 85-year-old female from [facility] assisted living has been having altered mental status since January 18 morning. Patient does have mild dementia but at baseline is alert, oriented 3 and is able to ambulate without any assistive device. Yesterday morning she was noted to be confused and was sent to the emergency room. In the ED, she had workup and and was felt that she had transient "global amnesia versus an episode of unwitnessed seizure as her Keppra was stopped 1 week ago. She was loaded with Keppra and sent back to the assisted living. , However, patient continued to be confused, incontinent of urine, unable to do any of her ADLs. Staff at the assisted living felt that she was not any better compared to the morning of January 18, so she was sent back to the ED for evaluation. In the ED on initial evaluation by the ED physician. She could say hello and she responded to her name, but other than that, she was confused, did not know where she was what was the month or year. On performing NIH strokes evaluation. She scored 5. ED physician felt she could have a altered mental status and possible stroke. CT scan in the ED showed old left frontal lobe encephalomalacia consistent with old infarct. To the hospitalist was consulted for admission. On my exam, patient was nonresponsive to voice or shaking. She did wake up on sternal rub and said "ouh ouh "went back to sleep. She would not allow me to open her eyes, which she was forcibly keeping closed could be taken from the patient on history is taken from ED physician and chart review Home Medications Scheduled Aspirin (Aspirin EC) 81 Mg Tablet.dr, 81 MG PO DAILY, (Reported) Carboxymethylcellulose Sodium (Refresh Tears) 15 Ml Drops, 1 DROP OU QID, (Reported) Cholecalciferol (Vitamin D3) (Vitamin D3) 1,000 Unit Tablet, 1,000 UNITS PO DAILY, (Reported) Emollient Combination No.115 (Vanicream) 227 Gm Lotion, 1 DOSE TOP BID, (Reported) LOWER LEGS Ferrous Gluconate (Ferrous Gluconate) 324 Mg Tablet, 324 MG PO Q2D, (Reported) Furosemide (Lasix) 20 Mg Tablet, 20 MG PO DAILY, (Reported) Levetiracetam (Levetiracetam) 250 Mg Tablet, 250 MG PO BID, (Reported) NEW RX FROM 01/18/21 - HAS NOT STARTED YET Losartan Potassium (Losartan Potassium) 25 Mg Tablet, 25 MG PO DAILY, (Reported) Multivitamins (Thera M Plus Tablet) 1 Each Tablet, 1 TAB PO DAILY, (Reported) Bryant-3/Dha/Epa/Fish Oil (Fish Oil 1,000 mg Softgel) 1 Each Capsule, 1 CAP PO QHS, (Reported) Potassium Chloride (Potassium Chloride) 10 Meq Tab.er.prt, 10 MEQ PO QHS, (Reported) Sennosides/Docusate Sodium (Senna-S Tablet) 1 Each Tablet, 2 TAB PO QHS, (Reported) Sennosides/Docusate Sodium (Senna-S Tablet) 1 Each Tablet, 1 TAB PO QAM, (Reported) Spironolactone (Spironolactone) 25 Mg Tablet, 12.5 MG PO DAILY, (Reported) Vit C/E/Zn/Coppr/Lutein/Zeaxan (Preservision Areds 2 Softgel) 1 Each Capsule, 2 CAP PO DAILY, (Reported) Wheat Dextrin (Benefiber) 1 Each Powd.pack, 1 POW PO QHS, (Reported) Scheduled PRN Acetaminophen (Acetaminophen) 325 Mg Tablet, 650 MG PO Q6H PRN for PAIN, (Reported) Fluticasone Propionate (Flonase Allergy Relief) 9.9 Ml [place].susp, 1 SPRAY NARES DAILY PRN for ALLERGIES, (Reported) Magnesium Hydroxide (Milk of Magnesia) 400 Mg/5 Ml Oral.susp, 30 ML PO DAILY PRN for CONSTIPATION, (Reported) Allergies Coded Allergies: No Known Allergies (Unverified , 12/21/20) Past Medical History Medical History Chronic Hyponatremia Essential HTN Dementia Remote hx of Seizure disorder (per consult note April 08 2010 no seizures for 20 yrs) Osteopenia 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 Family History unable to get very confused patient Social History * Smoker: Denies Alcohol: Denies Drugs: denies A-FIB/CHADSVASC A-FIB History Current/History of A-Fib/PAF?: No Review of Systems Other systems No review of systems couldn't be done due to patient being nonresponsive Physical Examination General Exam: Positive: No Acute Distress, Other (responsive only to pain, laying in position) ENT Exam: Positive: Atraumatic Neck Exam: Positive: Supple; Negative: JVD, thyromegaly Chest Exam: Positive: Clear to auscultation, Normal air movement Heart Exam: Positive: Rate Normal, Regular Rhythm, Normal S1, Normal S2; Negative: Murmurs, Rubs Telemetry: Positive: No significant arrhythmia Abdomen Exam: Positive: Normal bowel sounds, Soft; Negative: Tenderness Extremity Exam: Negative: Clubbing, Cyanosis, Edema Vital Signs Vital Signs Date Time Temp Pulse Resp B/P (MAP) Pulse Ox O2 Delivery O2 Flow Rate FiO2 01/19/21 16:22 66 18 199/84 (122) 99 Room Air 01/19/21 13:27 97.8 Laboratory Data Labs 24H Laboratory Tests 2 01/19/21 13:44: Immature Granulocyte % (Auto) 0.3, Neutrophils (%) (Auto) 68.2H, Lymphocytes (%) (Auto) 16.8L, Monocytes (%) (Auto) 13.0H, Eosinophils (%) (Auto) 1.4, Basophils (%) (Auto) 0.3, Neutrophils # (Auto) 4.3, Lymphocytes # (Auto) 1.1L, Monocytes # (Auto) 0.8, Eosinophils # (Auto) 0.1, Basophils # (Auto) 0.0, Nucleated Red Blood Cells % (auto) 0.0, Anion Gap 6L, Glomerular Filtration Rate 51.3, Lactic Acid Level 1.6, Calcium Level 8.6L, Total Bilirubin 0.3, Direct Bilirubin 0.1, Aspartate Amino Transf (AST/SGOT) 21, Alanine Aminotransferase (ALT/SGPT) 21, Alkaline Phosphatase 97, Ammonia 29, Total Creatine Kinase 73, Creatine Kinase MB 2.6, Creatine Kinase MB Relative Index 3.56, Troponin I < 0.02, Total Protein 6.5, Albumin 3.0L, Albumin/Globulin Ratio 0.9L, Thyroid Stimulating Hormone (TSH) 1.260, Salicylates Level < 1.7L, Acetaminophen Level < 2.0L, Ethyl Alcohol Level < 0.003 01/19/21 15:26: Urine Color YELLOW, Urine Appearance HAZY, Urine pH 7.0, Urine Specific [place] 1.005, Urine Protein NEGATIVE, Urine Glucose (UA) NEGATIVE, Urine Ketones NEGATIVE, Urine Blood NEGATIVE, Urine Nitrite NEGATIVE, Urine Bilirubin NEGATIVE, Urine Urobilinogen 0.2, Urine Leukocyte Esterase 2+H, Urine WBC (Auto) 13H, Urine RBC (Auto) 2, Urine Hyaline Casts (Auto) 1, Urine Bacteria (Auto) 1+H, Urine Squamous Epithelial Cells 0, Urine Sperm (Auto) , Urine Opiates Screen NEGATIVE, Urine Methadone Screen NEGATIVE, Urine Barbiturates Screen NEGA TIVE, Urine Phencyclidine Screen NEGATIVE, Urine Amphetamines Screen NEGATIVE, Urine Benzodiazepines Screen NEGATIVE, Urine Cocaine Metabolite Screen NEGATIVE, Urine Cannabinoids Screen NEGATIVE CBC/BMP Laboratory Tests 01/19/21 13:44 Microbiology Microbiology 01/19/21 Urine Culture, Received Pending 01/19/21 Respiratory Virus Panel (PCR) ([facility]) - Final, Complete 01/19/21 Blood Culture, Received Pending 01/19/21 Blood Culture, Received Pending Assessment/Plan 85-year-old female from [facility] assisted [facility] has been having altered mental status since January 18 morning. Patient does have mild dementia but at baseline is alert, oriented 3 and is able to ambulate without any assistive device. Y morning she was noted to be confused and was sent to the emergency room. In the ED, she had workup and and was felt that she had transient "global amnesia versus an episode of unwitnessed seizure as her Keppra was stopped 1 week ago. She was loaded with Keppra and sent back to the assisted living. , However, patient continued to be confused, incontinent of urine, unable to do any of her ADLs. Staff at the [facility] felt that she was not any better compared to the morning of January 18, so she was sent back to the ED for evaluation. In the ED on initial evaluation by the ED physician. She could say hello and she responded to her name, but other than that, she was confused, did not know where she was what was the month or year. On performing NIH strokes evaluation. She scored 5. ED physician felt she could have a altered mental status and possible stroke. CT scan in the ED showed old left frontal lobe encephalomalacia consistent with old infarct. To the hospitalist was consulted for admission. Altered mental status Acute metabolic encephalopathy on the background of dementia Rule out stroke Rule out unwitnessed seizure with postictal state MRI and MRA has been ordered Will get EEG No Signs of infection Continue aspirin Hypertension We will allow for permissive hypertension Continue losartan Seizure disorder Keppra Chronic hyponatremia Sodium at 130, which is about her baseline Will hold diuretics for now Plan / VTE VTE Prophylaxis Ordered?: Yes BLANK BERNAL MD Jan 19, 2021 16:53
[2021-01-19] MEDS: **hydrALAZINE HCL** 25 MG TAB PO SCH (18:11)
[2021-01-19] MEDS ORDERED: cloNIDine 0.1MG TABLET PO ONE (18:35)
[2021-01-19 20:13] VITALS: BP 176/70
--- NOTE | 2021-01-19 20:21 | ECGEPIP ---
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
[2021-01-19] MEDS: SENOKOT S TAB PO SCH (22:33)
[2021-01-19] MEDS: levETIRAcetam 250MG TABLET (KEPPRA) PO SCH (22:33)
[2021-01-19 22:34] VITALS: BP 139/63
[2021-01-20] VITALS (8 sets, daily range): BP systolic 143–173; BP diastolic 58–77
[2021-01-20] MEDS ORDERED: levETIRAcetam INJection 250 MG in D5W MINI-BAG PLUS 100 ML IV ONE (01:45)
[2021-01-20 05:38] LABS: BASO % 0.5 % (0.0-1.0); EOS # 0.2 10^3/uL (0.0-0.5); EOS % 3.1 % (0.0-3.0); HEMATOCRIT 32.5 % (36.0-47.0); HEMOGLOBIN 10.6 g/dl (12.0-15.5); LYMPH # 1.3 10^3/uL (1.5-5.0); LYMPH % 21.9 % (24.0-44.0); MEAN CORPUSCULAR HEMOGLOBIN 29.7 pg (27.0-33.0); MEAN CORPUSCULAR HGB CONC 32.6 g/dl (32.0-36.5); MONO # 0.8 10^3/uL (0.0-0.8); MONO % 13.5 % (2.0-8.0); NEUTROPHILS # 3.5 10^3/uL (1.5-8.5); NEUTROPHILS % 60.7 % (36.0-66.0); PLATELET COUNT, AUTOMATED 249 10^3/uL (150-450); RED BLOOD COUNT 3.57 10^6/uL (4.00-5.40); WHITE BLOOD COUNT 5.7 10^3/uL (4.0-10.0)
[2021-01-20] MEDS: **hydrALAZINE HCL** 25 MG TAB PO SCH ×5 (05:45→23:44)
[2021-01-20 06:06] LABS: BLOOD UREA NITROGEN 9 MG/DL (7-18); CALCIUM LEVEL 7.8 MG/DL (8.8-10.2); CARBON DIOXIDE LEVEL 25 MEQ/L (21-32); CHLORIDE LEVEL 99 MEQ/L (98-107); CREATININE FOR GFR 0.81 MG/DL (0.55-1.30); GLOMERULAR FILTRATION RATE > 60.0 (>32); GLUCOSE, FASTING 83 MG/DL (70-100); POTASSIUM SERUM 3.9 MEQ/L (3.5-5.1); SODIUM LEVEL 132 MEQ/L (136-145)
[2021-01-20] MEDS: levETIRAcetam 250MG TABLET (KEPPRA) PO SCH ×2 (08:35→21:26)
[2021-01-20] MEDS: ASPIRIN 81MG ENTERIC TABLET PO SCH (08:36)
[2021-01-20] MEDS: SENOKOT S TAB PO SCH ×2 (08:36→21:26)
[2021-01-20] MEDS: LOSARTAN 25 MG TAB PO SCH (08:37)
--- NOTE | 2021-01-20 10:41 | IPNPDOC ---
Subjective Date Seen The patient was seen on 01/20/21. Subjective Chief Complaint/HPI As per ED staff last evening after admission she was punching kicking and using foul language with the nurses and Aids. Then she did settle down by herself. Overnight she was incontinent but took her medications this morning. She is now awake and alert only talks when she wants to. I asker her if she wanted the milk. She replied "not the milk, the juice and banana.". But she would not look at me , would not greet me or answer other questions. Objective Physical Examination General Exam: Positive: Alert, No Acute Distress, Other (sitting up eating breakfast , talking only when she wants, not answering questions.) ENT Exam: Positive: Atraumatic Neck Exam: Positive: Supple; Negative: JVD, thyromegaly Chest Exam: Positive: Clear to auscultation, Normal air movement Heart Exam: Positive: Rate Normal, Regular Rhythm, Normal S1, Normal S2; Negative: Murmurs, Rubs Telemetry: Positive: No significant arrhythmia Abdomen Exam: Positive: Normal bowel sounds, Soft; Negative: Tenderness Extremity Exam: Negative: Clubbing, Cyanosis, Edema Assessment /Plan Assessment 85-year-old female from [facility] assisted [facility] has been having altered mental status since January 18 morning. Patient does have mild dementia but at baseline is alert, oriented 3 and is able to ambulate without any assistive device. Yesterday morning she was noted to be confused and was sent to the emergency room. In the ED, she had workup and and was felt that she had transient "global amnesia versus an episode of unwitnessed seizure as her Keppra was stopped 1 week ago. She was loaded with Keppra and sent back to the assisted living. , However, patient continued to be confused, incontinent of urine, unable to do any of her ADLs. Staff at the [facility] felt that she was not any better compared to the morning of January 18, so she was sent back to the ED for evaluation. In the ED on initial evaluation by the ED physician. She could say hello and she responded to her name, but other than that, she was confused, did not know where she was what was the month or year. On performing NIH strokes evaluation. She scored 5. ED physician felt she could have a altered mental status and possible stroke. CT scan in the ED showed old left frontal lobe encephalomalacia consistent with old infarct. To the hospitalist was consulted for admission. Altered mental status Acute metabolic encephalopathy on the background of dementia Rule out stroke Rule out unwitnessed seizure with postictal state MRI and MRA has been ordered Will get EEG No Signs of infection Continue aspirin Hypertension We will allow for permissive hypertension Continue losartan Seizure disorder Keppra Chronic hyponatremia Sodium at 132, which is her baseline Will hold diuretics for now Plan/VTE VTE Prophylaxis Ordered?: Yes VS, I&O, 24H, Fishbone Vital Signs/I&O Vital Signs Date Time Temp Pulse Resp B/P (MAP) Pulse Ox O2 Delivery O2 Flow Rate FiO2 01/20/21 08:37 164/72 01/20/21 08:00 97.3 62 8 100 Room Air I&O- Last 24 Hours up to 6 AM 01/20/21 05:59 Intake Total 0 ml Balance 0 ml Laboratory Data 24H LABS Laboratory Tests 2 01/19/21 13:44: Immature Granulocyte % (Auto) 0.3, Neutrophils (%) (Auto) 68.2H, Lymphocytes (%) (Auto) 16.8L, Monocytes (%) (Auto) 13.0H, Eosinophils (%) (Auto) 1.4, Basophils (%) (Auto) 0.3, Neutrophils # (Auto) 4.3, Lymphocytes # (Auto) 1.1L, Monocytes # (Auto) 0.8, Eosinophils # (Auto) 0.1, Basophils # (Auto) 0.0, Nucleated Red Blood Cells % (auto) 0.0, Anion Gap 6L, Glomerular Filtration Rate 51.3, Lactic Acid Level 1.6, Calcium Level 8.6L, Total Bilirubin 0.3, Direct Bilirubin 0.1, Aspartate Amino Transf (AST/SGOT) 21, Alanine Aminotransferase (ALT/SGPT) 21, Alkaline Phosphatase 97, Ammonia 29, Total Creatine Kinase 73, Creatine Kinase MB 2.6, Creatine Kinase MB Relative Index 3.56, Troponin I < 0.02, Total Protein 6.5, Albumin 3.0L, Albumin/Globulin Ratio 0.9L, Thyroid Stimulating Hormone (TSH) 1.260, Salicylates Level < 1.7L, Acetaminophen Level < 2.0L, Ethyl Alcohol Level < 0.003 01/19/21 15:26: Urine Color YELLOW, Urine Appearance HAZY, Urine pH 7.0, Urine Specific [place] 1.005, Urine Protein NEGATIVE, Urine Glucose (UA) NEGATIVE, Urine Ketones NEGATIVE, Urine Blood NEGATIVE, Urine Nitrite NEGATIVE, Urine Bilirubin NEGATIVE, Urine Urobilinogen 0.2, Urine Leukocyte Esterase 2+H, Urine WBC (Auto) 13H, Urine RBC (Auto) 2, Urine Hyaline Casts (Auto) 1, Urine Bacteria (Auto) 1+H, Urine Squamous Epithelial Cells 0, Urine Sperm (Auto) , Urine Opiates Screen NEGATIVE, Urine Methadone Screen NEGATIVE, Urine Barbiturates Screen NEGATIVE, Urine Phencyclidine Screen NEGATIVE, Urine Amphetamines Screen NEGATIVE, Urine Benzodiazepines Screen NEGATIVE, Urine Cocaine Metabolite Screen NEGATIVE, Urine Cannabinoids Screen NEGATIVE 01/20/21 05:24: Immature Granulocyte % (Auto) 0.3, Neutrophils (%) (Auto) 60.7, Lymphocytes (%) (Auto) 21.9L, Monocytes (%) (Auto) 13.5H, Eosinophils (%) (Auto) 3.1H, Basophils (%) (Auto) 0.5, Neutrophils # (Auto) 3.5, Lymphocytes # (Auto) 1.3L, Monocytes # (Auto) 0.8, Eosinophils # (Auto) 0.2, Basophils # (Auto) 0.0, Nucleated Red Blood Cells % (auto) 0.0, Anion Gap 8, Glomerular Filtration Rate > 60.0, Calcium Level 7.8L CBC/BMP Laboratory Tests 01/19/21 13:44 01/20/21 05:24 Microbiology Microbiology 01/19/21 Urine Culture, Received Pending 01/19/21 Respiratory Virus Panel (PCR) ([facility]) - Final, Complete 01/19/21 Blood Culture, Received Pending 01/19/21 Blood Culture, Received Pending BLANK BERNAL MD Jan 20, 2021 10:41
[2021-01-20] MEDS ORDERED: LORazepam 2 MG/ML VIAL IV ONE (12:00)
--- NOTE | 2021-01-20 21:47 | REPVR ---
PROCEDURE INFORMATION: Exam: MR Head Without Contrast Exam date and time: 01/20/2021 5:15 PM Age: 85 years old Clinical indication: Altered mental status/memory loss; Age related cognitive decline; Additional info: AMS TECHNIQUE: Imaging protocol: MR of the head without contrast. COMPARISON: CT Head without contrast 01/19/2021 1:57 PM FINDINGS: Brain: Multiple foci of T2 lengthening are demonstrated in the subcortical, periventricular, centrum semiovale and pontine white matter consistent with age-related small vessel gliosis. Moderate to severe parenchymal atrophy. There is moderate diffuse cerebellar atrophy. No acute ischemia demonstrated. Large focus of macrocystic encephalomalacia in the left frontoparietal region consistent with a prior infarct. Cerebral ventricles: Normal. No ventriculomegaly. Bones/joints: Unremarkable. Paranasal sinuses: Normal as visualized. No acute sinusitis. Mastoid air cells: Normal as visualized. No mastoid effusion. Orbital cavity: Unremarkable. Soft tissues: Unremarkable. IMPRESSION: 1. Multiple foci of T2 lengthening are demonstrated in the subcortical, periventricular, centrum semiovale and pontine white matter consistent with age-related small vessel gliosis. 2. Moderate to severe parenchymal atrophy. 3. There is moderate diffuse cerebellar atrophy. 4. Large focus of macrocystic encephalomalacia in the left frontoparietal region consistent with a prior infarct. 5. No acute intracranial findings. Electronically signed by: Joey Ruiz On 01/20/2021 21:47:15 PM
--- NOTE | 2021-01-20 21:49 | REPVR ---
PROCEDURE INFORMATION: Exam: MRA Head Without Contrast; Arteriography Exam date and time: 01/20/2021 5:15 PM Age: 85 years old Clinical indication: Cognitive deficit; Age-related cognitive decline; Additional info: AMS TECHNIQUE: Imaging protocol: Magnetic resonance angiography head without contrast. Exam focused on the arteries. COMPARISON: CT Head without contrast 01/19/2021 1:57 PM FINDINGS: ANTERIOR CIRCULATION: Right internal carotid artery: Luminal irregularity right cavernous carotid artery consistent with atherosclerosis. No high-grade stenosis. Right middle cerebral artery: No occlusion or significant stenosis. No aneurysm. 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 Left internal carotid artery: Luminal irregularity left cavernous carotid artery consistent with atherosclerosis. No high-grade stenosis. Left middle cerebral artery: No occlusion or significant stenosis. No aneurysm. Left anterior cerebral artery: No occlusion or significant stenosis. No aneurysm. POSTERIOR CIRCULATION: Right vertebral artery: No occlusion or significant stenosis. No aneurysm. Left vertebral artery: No occlusion or significant stenosis. No aneurysm. Basilar artery: No occlusion or significant stenosis. No aneurysm. Right posterior cerebral artery: No occlusion or significant stenosis. No aneurysm. Left posterior cerebral artery: No occlusion or significant stenosis. No aneurysm. IMPRESSION: 1. 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 2. [id number] atherosclerotic changes in the cavernous carotid arteries. 3. No vascular occlusion demonstrated. Electronically signed by: Joey Ruiz On 01/20/2021 21:49:20 PM
[2021-01-21] MEDS: **hydrALAZINE HCL** 25 MG TAB PO SCH ×3 (05:44→17:01)
[2021-01-21 06:00] VITALS: BP 160/73
[2021-01-21 06:13] LABS: BASO % 0.7 % (0.0-1.0); EOS # 0.2 10^3/uL (0.0-0.5); EOS % 2.7 % (0.0-3.0); HEMATOCRIT 34.9 % (36.0-47.0); HEMOGLOBIN 11.4 g/dl (12.0-15.5); LYMPH % 17.3 % (24.0-44.0); MEAN CORPUSCULAR HGB CONC 32.7 g/dl (32.0-36.5); MEAN CORPUSCULAR VOLUME 91.8 fl (80.0-96.0); MONO # 0.7 10^3/uL (0.0-0.8); MONO % 12.3 % (2.0-8.0); NEUTROPHILS # 3.7 10^3/uL (1.5-8.5); NEUTROPHILS % 66.6 % (36.0-66.0); PLATELET COUNT, AUTOMATED 271 10^3/uL (150-450); WHITE BLOOD COUNT 5.6 10^3/uL (4.0-10.0)
[2021-01-21 06:36] LABS: BLOOD UREA NITROGEN 8 MG/DL (7-18); CALCIUM LEVEL 7.9 MG/DL (8.8-10.2); CARBON DIOXIDE LEVEL 25 MEQ/L (21-32); CHLORIDE LEVEL 101 MEQ/L (98-107); GLOMERULAR FILTRATION RATE > 60.0 (>32); GLUCOSE, FASTING 82 MG/DL (70-100); POTASSIUM SERUM 4.1 MEQ/L (3.5-5.1); SODIUM LEVEL 133 MEQ/L (136-145)
[2021-01-21] MEDS: ASPIRIN 81MG ENTERIC TABLET PO SCH (08:21)
[2021-01-21] MEDS: LOSARTAN 25 MG TAB PO SCH (08:21)
[2021-01-21] MEDS: levETIRAcetam 250MG TABLET (KEPPRA) PO SCH ×2 (08:21→20:09)
[2021-01-21] MEDS: SENOKOT S TAB PO SCH ×2 (08:21→20:10)
--- NOTE | 2021-01-21 12:37 | IPNPDOC ---
Subjective Date Seen The patient was seen on 01/21/21. Subjective Chief Complaint/HPI Patient had not voided for 24 hours in the hospital. Bladder scan showed 1200 cc. Straight cath produced 1600 cc last night. I think she will need to be discharged with a Yanes. Today we will bladder scan BID and st cath if > 300 cc. This am she is sitting in the chair pleasant and cooperative, awake and alert but oriented x 1. Had breakfast by herself. She has not voided this am yet. Objective Physical Examination General Exam: Positive: Alert, Cooperative, No Acute Distress, Other (oriented x 1) Eye Exam: Positive: Conjunctiva & lids normal, EOMI ENT Exam: Positive: Atraumatic, Mucous membr. moist/pink Neck Exam: Positive: Supple; Negative: JVD, thyromegaly Chest Exam: Positive: Clear to auscultation, Normal air movement Heart Exam: Positive: Rate Normal, Regular Rhythm, Normal S1, Normal S2; Negative: Murmurs, Rubs Telemetry: Positive: No significant arrhythmia Abdomen Exam: Positive: Normal bowel sounds, Soft; Negative: Tenderness Extremity Exam: Negative: Clubbing, Cyanosis, Edema Assessment /Plan Assessment 85-year-old female from [facility] assisted living has been having altered mental status since January 18 morning. Patient does have mild dementia but at baseline is alert, oriented 3 and is able to ambulate without any assistive device. Yesterday morning she was noted to be confused and was sent to the emergency room. In the ED, she had workup and and was felt that she had transient "global amnesia versus an episode of unwitnessed seizure as her Keppra was stopped 1 week ago. She was loaded with Keppra and sent back to the assisted living. , However, patient continued to be confused, incontinent of urine, unable to do any of her ADLs. Staff at the [facility] felt that she was not any better compared to the morning of January 18, so she was sent back to the ED for evaluation. In the ED on initial evaluation by the ED physician. She could say hello and she responded to her name, but other than that, she was confused, did not know where she was what was the month or year. On performing NIH strokes evaluation. She scored 5. ED physician felt she could have a altered mental status and possible stroke. CT scan in the ED showed old left frontal lobe encephalomalacia consistent with old infarct. To the hospitalist was consulted for admission. Altered mental status Acute metabolic encephalopathy on the background of dementia MRi no acute stroke, Shows old large frontal encephalomalacia and diffuse chronic microvascular changes EEG done. No Signs of infection Continue aspirin She had acute urinary retention this may be the reason for acute metabolic encephalopathy which seems to be resolving. No urine infection She also has advancing dementia so I think she would do better in LTC than assisted living. Acute urinary retention Had 1600 cc on straight cath will likely need to go to NH with yanes Hypertension Continue losartan Seizure disorder Keppra restarted. Chronic hyponatremia Sodium at 132, which is her baseline Will hold diuretics for now Plan/VTE VTE Prophylaxis Ordered?: Yes VS, I&O, 24H, Fishbone Vital Signs/I&O Vital Signs Date Time Temp Pulse Resp B/P (MAP) Pulse Ox O2 Delivery O2 Flow Rate FiO2 01/21/21 12:00 138/68 01/21/21 06:00 97.2 79 18 98 Room Air I&O- Last 24 Hours up to 6 AM 01/21/21 06:00 Intake Total 170 ml Balance 170 ml Laboratory Data 24H LABS Laboratory Tests 2 01/21/21 05:52: Immature Granulocyte % (Auto) 0.4, Neutrophils (%) (Auto) 66.6H, Lymphocytes (%) (Auto) 17.3L, Monocytes (%) (Auto) 12.3H, Eosinophils (%) (Auto) 2.7, Basophils (%) (Auto) 0.7, Neutrophils # (Auto) 3.7, Lymphocytes # (Auto) 1.0L, Monocytes # (Auto) 0.7, Eosinophils # (Auto) 0.2, Basophils # (Auto) 0.0, Nucleated Red Blood Cells % (auto) 0.0, Anion Gap 7L, Glomerular Filtration Rate > 60.0, Calcium Level 7.9L CBC/BMP Laboratory Tests 01/21/21 05:52 Microbiology Microbiology 01/19/21 Urine Culture - Final, Complete 01/19/21 Respiratory Virus Panel (PCR) ([facility]) - Final, Complete 01/19/21 Blood Culture - Preliminary, Resulted No growth after 24 hours . All specim... 01/19/21 Blood Culture - Preliminary, Resulted No growth after 24 hours . All specim... BLANK BERNAL MD Jan 21, 2021 12:37
--- NOTE | 2021-01-21 12:43 | EEG ---
ELECTROENCEPHALOGRAM DATE: 01/20/2021 DIAGNOSIS: Altered mental status. EEG# [id number]. REFERRING PHYSICIAN: Dinorah Cazares MD HISTORY: Patient is an 85-year-old woman who was admitted at [facility] due to altered mental status. She had an episode of transient global amnesia versus an episode of unwitnessed seizure as her Keppra was stopped a week ago. This EEG was done to rule out epileptic potential. She is currently taking hydralazine, Keppra, aspirin, Levetiracetam, clonidine, etc. TECHNICAL DESCRIPTION: This digital EEG was recorded by 21-scalp, ear, and two EKG electrodes and was reviewed in bipolar and referential montages following reformatting in 10-20 international electrode placement system. INTERPRETATION: Patient was noted to be mostly in asleep state. Background rhythm consisted of 7.5-8 Hz theta activity measuring 15-40 microvolts in amplitude, which was symmetric bilaterally. Stage 1 and 2 sleep were reviewed and were symmetric bilaterally. Hyperventilation was not performed. Photic stimulation remained unremarkable. EKG revealed irregular heart beat with PACs, few PVCs. Atrial fibrillation could not be ruled out. Left central, parietal, and temporal sharp and slow wave complexes were noted infrequently. CONCLUSION: This EEG in awake, drowsy, stage 1 and 2 sleep is abnormal due to presence of infrequent left central, parietal, and temporal epileptiform discharges consistent with focal cortical structure or functional abnormality with epileptic potential. In addition, minimal slowing of background likely indicates mild diffuse cerebellar dysfunction such as seen in mild encephalopathy. Clinical correlation is recommended.
[2021-01-21 14:30] VITALS: BP 142/70
[2021-01-21 22:00] VITALS: BP 118/67
[2021-01-22] MEDS: **hydrALAZINE HCL** 25 MG TAB PO SCH ×4 (05:03→17:06)
[2021-01-22 06:00] VITALS: BP 164/78
[2021-01-22 07:01] LABS: BASO % 0.7 % (0.0-1.0); EOS # 0.2 10^3/uL (0.0-0.5); EOS % 3.1 % (0.0-3.0); HEMOGLOBIN 11.6 g/dl (12.0-15.5); LYMPH % 18.1 % (24.0-44.0); MEAN CORPUSCULAR HEMOGLOBIN 29.7 pg (27.0-33.0); MEAN CORPUSCULAR HGB CONC 33.1 g/dl (32.0-36.5); MEAN CORPUSCULAR VOLUME 89.7 fl (80.0-96.0); MONO # 0.8 10^3/uL (0.0-0.8); MONO % 14.5 % (2.0-8.0); NEUTROPHILS # 3.5 10^3/uL (1.5-8.5); NEUTROPHILS % 63.2 % (36.0-66.0); PLATELET COUNT, AUTOMATED 261 10^3/uL (150-450); WHITE BLOOD COUNT 5.5 10^3/uL (4.0-10.0)
[2021-01-22 07:19] LABS: BLOOD UREA NITROGEN 9 MG/DL (7-18); CALCIUM LEVEL 8.6 MG/DL (8.8-10.2); CARBON DIOXIDE LEVEL 26 MEQ/L (21-32); CHLORIDE LEVEL 99 MEQ/L (98-107); CREATININE FOR GFR 0.74 MG/DL (0.55-1.30); GLOMERULAR FILTRATION RATE > 60.0 (>32); GLUCOSE, FASTING 95 MG/DL (70-100); POTASSIUM SERUM 3.9 MEQ/L (3.5-5.1); SODIUM LEVEL 132 MEQ/L (136-145)
[2021-01-22] MEDS: SENOKOT S TAB PO SCH ×2 (09:55→19:57)
[2021-01-22] MEDS: ASPIRIN 81MG ENTERIC TABLET PO SCH (09:55)
[2021-01-22] MEDS: levETIRAcetam 250MG TABLET (KEPPRA) PO SCH ×2 (09:55→20:00)
[2021-01-22] MEDS: LOSARTAN 25 MG TAB PO SCH (10:02)
--- NOTE | 2021-01-22 13:18 | IPNPDOC ---
Subjective Date Seen The patient was seen on 01/22/21. Subjective Chief Complaint/HPI She is very pleasant sitting up in chair ambulating to bathroom with walker with Aid. remains confused but follows commands and can have a simple conversation. She still does not know where she is and where she lives. Objective Physical Examination General Exam: Positive: Alert, Cooperative, No Acute Distress, Other (oriented x 1) Eye Exam: Positive: Conjunctiva & lids normal, EOMI ENT Exam: Positive: Atraumatic, Mucous membr. moist/pink Neck Exam: Positive: Supple; Negative: JVD, thyromegaly Chest Exam: Positive: Clear to auscultation, Normal air movement Heart Exam: Positive: Rate Normal, Regular Rhythm, Normal S1, Normal S2; Negative: Murmurs, Rubs Telemetry: Positive: No significant arrhythmia Abdomen Exam: Positive: Normal bowel sounds, Soft; Negative: Tenderness Extremity Exam: Negative: Clubbing, Cyanosis, Edema Assessment /Plan Assessment 85-year-old female from [facility] assisted living has been having altered mental status since January 18 morning. Patient does have mild dementia but at baseline is alert, oriented 3 and is able to ambulate without any assistive device. Yesterday morning she was noted to be confused and was sent to the emergency room. In the ED, she had workup and and was felt that she had transient "global amnesia versus an episode of unwitnessed seizure as her Keppra was stopped 1 week ago. She was loaded with Keppra and sent back to the assisted [facility]. , However, patient continued to be confused, incontinent of urine, unable to do any of her ADLs. Staff at the [facility] felt that she was not any better compared to the morning of January 18, so she was sent back to the ED for evaluation. In the ED on initial evaluation by the ED physician. She could say hello and she responded to her name, but other than that, she was confused, did not know where she was what was the month or year. On performing NIH strokes evaluation. She scored 5. ED physician felt she could have a altered mental status and possible stroke. CT scan in the ED showed old left frontal lobe encephalomalacia consistent with old infarct. To the hospitalist was consulted for admission. Acute metabolic encephalopathy on the background of dementia Looks like she was she may have been having seizures with post ictal state. EEG in awake, drowsy, stage 1 and 2 sleep is abnormal due to presence of infrequent left central, parietal, and temporal epileptiform discharges consistent with focal cortical structure or functional abnormality with epileptic potential. In addition, minimal slowing of background likely indicates mild diffuse cerebellar dysfunction such as seen in mild encephalopathy. MRI no acute stroke, Shows old large frontal encephalomalacia and diffuse chronic microvascular changes No Signs of infection Continue aspirin She also had acute urinary retention this may have worsened the acute metabolic encephalopathy which seems to be resolving. No urine infection She also has advancing dementia so I think she would do better in LTC than assisted living. Acute urinary retention Had 1600 cc on straight cath May need to go to NH with yanes Hypertension Continue losartan Seizure disorder Keppra restarted. Chronic hyponatremia Sodium at 132, which is her baseline Will hold diuretics for now Plan/VTE VTE Prophylaxis Ordered?: Yes VS, I&O, 24H, Fishbone Vital Signs/I&O Vital Signs Date Time Temp Pulse Resp B/P (MAP) Pulse Ox O2 Delivery O2 Flow Rate FiO2 01/22/21 11:40 128/70 01/22/21 06:00 97.1 89 16 97 Room Air I&O- Last 24 Hours up to 6 AM 01/22/21 06:00 Intake Total 1330 ml Output Total 1900 ml Balance -570 ml Laboratory Data 24H LABS Laboratory Tests 2 01/22/21 06:28: Immature Granulocyte % (Auto) 0.4, Neutrophils (%) (Auto) 63.2, Lymphocytes (%) (Auto) 18.1L, Monocytes (%) (Auto) 14.5H, Eosinophils (%) (Auto) 3.1H, Basophils (%) (Auto) 0.7, Neutrophils # (Auto) 3.5, Lymphocytes # (Auto) 1.0L, Monocytes # (Auto) 0.8, Eosinophils # (Auto) 0.2, Basophils # (Auto) 0.0, Nucleated Red Blood Cells % (auto) 0.0, Anion Gap 7L, Glomerular Filtration Rate > 60.0, Calcium Level 8.6L CBC/BMP Laboratory Tests 01/22/21 06:28 Microbiology Microbiology 01/19/21 Urine Culture - Final, Complete 01/19/21 Respiratory Virus Panel (PCR) ([facility]) - Final, Complete 01/19/21 Blood Culture - Preliminary, Resulted No Growth after 48 hours. All Specime... 01/19/21 Blood Culture - Preliminary, Resulted No Growth after 48 hours. All Specime... BLANK BERNAL MD Jan 22, 2021 13:18
[2021-01-22 14:00] VITALS: BP 143/84
[2021-01-22 22:00] VITALS: BP 142/63
[2021-01-23] MEDS: **hydrALAZINE HCL** 25 MG TAB PO SCH ×3 (00:37→12:00)
[2021-01-23 06:00] VITALS: BP 146/64
[2021-01-23] MEDS ORDERED: LEVE250T5 PO (07:33)
[2021-01-23 07:36] LABS: BASO % 0.7 % (0.0-1.0); EOS # 0.2 10^3/uL (0.0-0.5); EOS % 4.5 % (0.0-3.0); HEMOGLOBIN 11.1 g/dl (12.0-15.5); LYMPH # 1.1 10^3/uL (1.5-5.0); MEAN CORPUSCULAR HEMOGLOBIN 29.8 pg (27.0-33.0); MEAN CORPUSCULAR HGB CONC 32.6 g/dl (32.0-36.5); MEAN CORPUSCULAR VOLUME 91.2 fl (80.0-96.0); MONO # 0.6 10^3/uL (0.0-0.8); MONO % 14.5 % (2.0-8.0); NEUTROPHILS # 2.4 10^3/uL (1.5-8.5); NEUTROPHILS % 55.1 % (36.0-66.0); PLATELET COUNT, AUTOMATED 272 10^3/uL (150-450); RED BLOOD COUNT 3.73 10^6/uL (4.00-5.40); WHITE BLOOD COUNT 4.4 10^3/uL (4.0-10.0)
[2021-01-23 08:05] LABS: BLOOD UREA NITROGEN 8 MG/DL (7-18); CALCIUM LEVEL 8.4 MG/DL (8.8-10.2); CARBON DIOXIDE LEVEL 28 MEQ/L (21-32); CHLORIDE LEVEL 97 MEQ/L (98-107); CREATININE FOR GFR 0.74 MG/DL (0.55-1.30); GLOMERULAR FILTRATION RATE > 60.0 (>32); GLUCOSE, FASTING 87 MG/DL (70-100); POTASSIUM SERUM 4.6 MEQ/L (3.5-5.1); SODIUM LEVEL 131 MEQ/L (136-145)
[2021-01-23] MEDS: SENOKOT S TAB PO SCH (08:12)
[2021-01-23] MEDS: levETIRAcetam 250MG TABLET (KEPPRA) PO SCH (08:12)
[2021-01-23] MEDS: ASPIRIN 81MG ENTERIC TABLET PO SCH (08:14)
[2021-01-23] MEDS: LOSARTAN 25 MG TAB PO SCH (08:14)
--- NOTE | 2021-01-23 11:24 | DS.PDOC ---
Discharge Summary General Date of Admission Jan 19, 2021 at 17:15 Date of Discharge 01/23/21 Discharge Summary PROCEDURES PERFORMED DURING STAY: [None]. 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 COMPLICATIONS/CHIEF COMPLAINT: AMS. HOSPITAL COURSE: 85-year-old female from [facility] assisted living has been having altered mental status since January 18 morning. Patient does have mild dementia but at baseline is alert, oriented 3 and is able to ambulate without any assistive device. Yesterday morning she was noted to be confused and was sent to the emergency room. In the ED, she had workup and and was felt that she had transient "global amnesia versus an episode of unwitnessed seizure as her Keppra was stopped 1 week ago. She was loaded with Keppra and sent back to the assisted living. , However, patient continued to be confused, incontinent of uri ne, unable to do any of her ADLs. Staff at the assisted living felt that she was not any better compared to the morning of January 18, so she was sent back to the ED for evaluation. In the ED on initial evaluation by the ED physician. She could say hello and she responded to her name, but other than that, she was confused, did not know where she was what was the month or year. On performing NIH strokes evaluation. She scored 5. ED physician felt she could have a altered mental status and possible stroke. CT scan in the ED showed old left frontal lobe encephalomalacia consistent with old infarct. To the hospitalist was consulted for admission. Acute metabolic encephalopathy on the background of dementia Looks like she was she may have been having seizures with post ictal state. EEG in awake, drowsy, stage 1 and 2 sleep is abnormal due to presence of infrequent left central, parietal, and temporal epileptiform discharges consistent with focal cortical structure or functional abnormality with epileptic potential. In addition, minimal slowing of background likely indicates mild diffuse cerebellar dysfunction such as seen in mild encephalopathy. MRI no acute stroke, Shows old large frontal encephalomalacia and diffuse chronic microvascular changes No Signs of infection Continue aspirin She also had acute urinary retention this may have worsened the acute metabolic encephalopathy which seems to be resolving. No urine infection She also has advancing dementia so I think she would do better in LTC than assisted living. Likely developmental disability Seizure from childhood. after discussion with Niece i found out that patient has been in NH/ assisted living since 1970s when she was in her 40s. Before that patient used to live with her parents. Patient was not able to finish school as it was too difficult for her. After the patient's parents passed she had tried living alone but she could not manage so had to be placed in NH by her older sister Yadi who is the mother of niece Zari. Zari remembers about 40 to 50 years ago when she was a child her aunt Meli (patient) used to have seizures often. Acute urinary retention Had 1600 cc on straight cath May need to go to NH with yanes Hypertension Continue losartan Seizure disorder Keppra dose increased after discussion with DR Saima Brown recommends keppra for life and EEG shows structural or functional abnormality on the left cortex which has seizure potential. Chronic hyponatremia Sodium at 132, which is her baseline Will hold diuretics for now DISCHARGE MEDICATIONS: Please see below. ALLERGIES: Please see below. PHYSICAL EXAMINATION ON DISCHARGE: VITAL SIGNS: Please see below. General Exam: Positive: Alert, Cooperative, No Acute Distress, Other (oriented x 1) Eye Exam: Positive: Conjunctiva & lids normal, EOMI ENT Exam: Positive: Atraumatic, Mucous membr. moist/pink Neck Exam: Positive: Supple; Negative: JVD, thyromegaly Chest Exam: Positive: Clear to auscultation, Normal air movement Heart Exam: Positive: Rate Normal, Regular Rhythm, Normal S1, Normal S2; Negative: Murmurs, Rubs Telemetry: Positive: No significant arrhythmia Abdomen Exam: Positive: Normal bowel sounds, Soft; Negative: Tenderness Extremity Exam: Negative: Clubbing, Cyanosis, Edema LABORATORY DATA: Please see below. ACTIVITY: [As tolerated]. DIET: As tolerated DISPOSITION: [facility] skilled DISCHARGE INSTRUCTIONS: Referral to Dr Brown in 2 weeks for seizures. Follow up with MD in NH DISCHARGE CONDITION: [Stable]. TIME SPENT ON DISCHARGE: 35 minutes. Vital Signs/I&Os Vital Signs Date Time Temp Pulse Resp B/P (MAP) Pulse Ox O2 Delivery O2 Flow Rate FiO2 4/30/21 08:14 136/62 01/23/21 06:00 97.1 63 16 97 Room Air I&O- Last 24 Hours up to 6 AM 01/23/21 06:00 Intake Total 580 ml Output Total 100 ml Balance 480 ml Laboratory Data Labs 24H Laboratory Tests 2 01/23/21 07:18: Immature Granulocyte % (Auto) 0.2, Neutrophils (%) (Auto) 55.1, Lymphocytes (%) (Auto) 25.0, Monocytes (%) (Auto) 14.5H, Eosinophils (%) (Auto) 4.5H, Basophils (%) (Auto) 0.7, Neutrophils # (Auto) 2.4, Lymphocytes # (Auto) 1.1L, Monocytes # (Auto) 0.6, Eosinophils # (Auto) 0.2, Basophils # (Auto) 0.0, Nucleated Red Blood Cells % (auto) 0.0, Anion Gap 6L, Glomerular Filtration Rate > 60.0, Calcium Level 8.4L 01/23/21 09:22: Coronavirus (COVID-19)(PCR) NEGATIVE CBC/BMP Laboratory Tests 01/23/21 07:18 Microbiology Microbiology 01/19/21 Urine Culture - Final, Complete 01/19/21 Respiratory Virus Panel (PCR) ([facility]) - Final, Complete 01/19/21 Blood Culture - Preliminary, Resulted No Growth after 72 hours. All specime... 01/19/21 Blood Culture - Preliminary, Resulted No Growth after 72 hours. All specime... Discharge Medications Scheduled Aspirin (Aspirin EC) 81 Mg Tablet.dr, 81 MG PO DAILY, (Reported) Carboxymethylcellulose Sodium (Refresh Tears) 15 Ml Drops, 1 DROP OU QID, (Reported) Cholecalciferol (Vitamin D3) (Vitamin D3) 1,000 Unit Tablet, 1,000 UNITS PO DAILY, (Reported) Emollient Combination No.115 (Vanicream) 227 Gm Lotion, 1 DOSE TOP BID, (Reported) LOWER LEGS Ferrous Gluconate (Ferrous Gluconate) 324 Mg Tablet, 324 MG PO Q2D, (Reported) Furosemide (Lasix) 20 Mg Tablet, 20 MG PO DAILY, (Reported) Levetiracetam (Levetiracetam) 250 Mg Tablet, 500 MG PO BID NEW RX FROM 4/25/21 - HAS NOT STARTED YET Losartan Potassium (Losartan Potassium) 25 Mg Tablet, 25 MG PO DAILY, (Reported) Multivitamins (Thera M Plus Tablet) 1 Each Tablet, 1 TAB PO DAILY, (Reported) Atwood-3/Dha/Epa/Fish Oil (Fish Oil 1,000 mg Softgel) 1 Each Capsule, 1 CAP PO QHS, (Reported) Potassium Chloride (Potassium Chloride) 10 Meq Tab.er.prt, 10 MEQ PO QHS, (Reported) Sennosides/Docusate Sodium (Senna-S Tablet) 1 Each Tablet, 2 TAB PO QHS, (Reported) Sennosides/Docusate Sodium (Senna-S Tablet) 1 Each Tablet, 1 TAB PO QAM, (Reported) Spironolactone (Spironolactone) 25 Mg Tablet, 12.5 MG PO DAILY, (Reported) Vit C/E/Zn/Coppr/Lutein/Zeaxan (Preservision Areds 2 Softgel) 1 Each Capsule, 2 CAP PO DAILY, (Reported) Wheat Dextrin (Benefiber) 1 Each Powd.pack, 1 POW PO QHS, (Reported) Scheduled PRN Acetaminophen (Acetaminophen) 325 Mg Tablet, 650 MG PO Q6H PRN for PAIN, (Report ed) Fluticasone Propionate (Flonase Allergy Relief) 9.9 Ml Hammett.susp, 1 SPRAY NARES DAILY PRN for ALLERGIES, (Reported) Magnesium Hydroxide (Milk of Magnesia) 400 Mg/5 Ml Oral.susp, 30 ML PO DAILY PRN for CONSTIPATION, (Reported) Allergies Coded Allergies: No Known Allergies (Unverified , 12/21/20) BLANK BERNAL MD Jan 23, 2021 11:24
[2021-01-23 12:00] VITALS: BP 132/58
== END 2021-01-23 12:40 | DRG 100 ==
LOC: M ED 13:14 → M ED INP 17:15 → ENRESERV 18:59 → M PCU 20:01 → M MSPAV 01-20 17:49
PROVIDERS: ADMIT Internal Medicine Nephrology; ATTEND Internal Medicine Nephrology
DX: G40.909 Epilepsy, unspecified, not intractable, without status epilepticus (principal); G93.41 Metabolic encephalopathy; E87.1 Hypo-osmolality and hyponatremia; F03.91 Unspecified dementia, unspecified severity, with behavioral disturbance; R41.82 Altered mental status, unspecified; R32 Unspecified urinary incontinence; R33.9 Retention of urine, unspecified; M85.80 Other specified disorders of bone density and structure, unspecified site; I10 Essential (primary) hypertension; Z66 Do not resuscitate; Z74.1 Need for assistance with personal care; Z79.82 Long term (current) use of aspirin; Z79.899 Other long term (current) drug therapy; Z98.41 Cataract extraction status, right eye; Z98.42 Cataract extraction status, left eye; Z20.822 Contact with and (suspected) exposure to COVID-19

== ENCOUNTER → 2021-01-27 | Outpatient (REF) | payer MEDICAID, MEDICARE ==
[~2021-01-27] MED LIST changes: +LEVE250T5 PO
[2021-01-27 10:46] LABS: HEMOGLOBIN 11.8 g/dl (12.0-15.5); MEAN CORPUSCULAR HEMOGLOBIN 29.4 pg (27.0-33.0); MEAN CORPUSCULAR HGB CONC 31.9 g/dl (32.0-36.5); MEAN CORPUSCULAR VOLUME 92.3 fl (80.0-96.0); PLATELET COUNT, AUTOMATED 319 10^3/uL (150-450); RED BLOOD COUNT 4.01 10^6/uL (4.00-5.40); WHITE BLOOD COUNT 4.7 10^3/uL (4.0-10.0)
[2021-01-27 11:19] LABS: CALCIUM LEVEL 9.4 MG/DL (8.8-10.2); POTASSIUM SERUM 4.4 MEQ/L (3.5-5.1)
== END ==
PROVIDERS: ATTEND Internal Medicine
DX: I50.9 Heart failure, unspecified (principal)

== ENCOUNTER → 2021-02-03 | Outpatient (REF) | payer MEDICARE, MEDICAID ==
[2021-02-03 10:11] LABS: MEAN CORPUSCULAR HEMOGLOBIN 29.9 pg (27.0-33.0); MEAN CORPUSCULAR HGB CONC 31.6 g/dl (32.0-36.5); MEAN CORPUSCULAR VOLUME 94.5 fl (80.0-96.0); PLATELET COUNT, AUTOMATED 370 10^3/uL (150-450); RED BLOOD COUNT 4.02 10^6/uL (4.00-5.40); WHITE BLOOD COUNT 6.6 10^3/uL (4.0-10.0)
[2021-02-03 10:47] LABS: CALCIUM LEVEL 9.1 MG/DL (8.8-10.2); CREATININE FOR GFR 1.13 MG/DL (0.55-1.30); GLOMERULAR FILTRATION RATE 48.6 (>32); POTASSIUM SERUM 3.8 MEQ/L (3.5-5.1)
== END ==
PROVIDERS: ATTEND Physician Assistant
DX: I50.9 Heart failure, unspecified (principal)

== ENCOUNTER → 2021-02-17 | Outpatient (REF) | payer MEDICARE, MEDICAID ==
[2021-02-17 12:29] LABS: HEMATOCRIT 35.4 % (36.0-47.0); HEMOGLOBIN 11.4 g/dl (12.0-15.5); MEAN CORPUSCULAR HEMOGLOBIN 29.8 pg (27.0-33.0); MEAN CORPUSCULAR HGB CONC 32.2 g/dl (32.0-36.5); MEAN CORPUSCULAR VOLUME 92.4 fl (80.0-96.0); PLATELET COUNT, AUTOMATED 301 10^3/uL (150-450); RED BLOOD COUNT 3.83 10^6/uL (4.00-5.40); WHITE BLOOD COUNT 4.7 10^3/uL (4.0-10.0)
[2021-02-17 12:56] LABS: BLOOD UREA NITROGEN 6 MG/DL (7-18); CARBON DIOXIDE LEVEL 28 MEQ/L (21-32); CHLORIDE LEVEL 96 MEQ/L (98-107); CREATININE FOR GFR 0.88 MG/DL (0.55-1.30); GLOMERULAR FILTRATION RATE > 60.0 (>32); GLUCOSE, FASTING 105 MG/DL (70-100); NT-PRO BNP 575 PG/ML (<450); POTASSIUM SERUM 3.9 MEQ/L (3.5-5.1); SODIUM LEVEL 132 MEQ/L (136-145)
== END ==
PROVIDERS: ATTEND Internal Medicine
DX: G40.909 Epilepsy, unspecified, not intractable, without status epilepticus (principal)

== ENCOUNTER → 2021-04-08 | Outpatient (REF) | payer MEDICARE, MEDICAID | PROVIDERS: ATTEND Physician Assistant | DX: G40.909 Epilepsy, unspecified, not intractable, without status epilepticus (principal) ==

== ENCOUNTER → 2021-04-13 | Outpatient (REF) | payer MEDICARE, MEDICAID ==
[2021-04-13 10:59] LABS: HEMATOCRIT 32.7 % (36.0-47.0); HEMOGLOBIN 10.6 g/dl (12.0-15.5); MEAN CORPUSCULAR HEMOGLOBIN 29.9 pg (27.0-33.0); MEAN CORPUSCULAR HGB CONC 32.4 g/dl (32.0-36.5); MEAN CORPUSCULAR VOLUME 92.4 fl (80.0-96.0); PLATELET COUNT, AUTOMATED 271 10^3/uL (150-450); RED BLOOD COUNT 3.54 10^6/uL (4.00-5.40); WHITE BLOOD COUNT 6.3 10^3/uL (4.0-10.0)
[2021-04-13 11:35] LABS: CREATININE FOR GFR 0.98 MG/DL (0.55-1.30); GLOMERULAR FILTRATION RATE 57.3 (>32); POTASSIUM SERUM 4.7 MEQ/L (3.5-5.1)
== END ==
PROVIDERS: ATTEND Physician Assistant
DX: I50.9 Heart failure, unspecified (principal)

== ENCOUNTER → 2021-04-14 | Outpatient (REF) | payer MEDICARE, MEDICAID ==
[2021-04-14 10:59] LABS: HEMATOCRIT 35.5 % (36.0-47.0); HEMOGLOBIN 11.4 g/dl (12.0-15.5); MEAN CORPUSCULAR HEMOGLOBIN 29.7 pg (27.0-33.0); MEAN CORPUSCULAR HGB CONC 32.1 g/dl (32.0-36.5); MEAN CORPUSCULAR VOLUME 92.4 fl (80.0-96.0); PLATELET COUNT, AUTOMATED 250 10^3/uL (150-450); RED BLOOD COUNT 3.84 10^6/uL (4.00-5.40)
[2021-04-14 11:22] LABS: BLOOD UREA NITROGEN 8 MG/DL (7-18); CALCIUM LEVEL 8.5 MG/DL (8.8-10.2); CARBON DIOXIDE LEVEL 25 MEQ/L (21-32); CHLORIDE LEVEL 102 MEQ/L (98-107); CREATININE FOR GFR 0.78 MG/DL (0.55-1.30); GLOMERULAR FILTRATION RATE > 60.0 (>32); GLUCOSE, FASTING 75 MG/DL (70-100); SODIUM LEVEL 134 MEQ/L (136-145)
== END ==
PROVIDERS: ATTEND Internal Medicine
DX: I50.9 Heart failure, unspecified (principal)

== ENCOUNTER → 2021-04-15 | Outpatient (REF) | payer MEDICARE, MEDICAID ==
[~2021-04-15] MED LIST changes: +LOSA25TA13 PO; -LOSA25TA14 PO
[2021-04-15 12:59] LABS: HEMATOCRIT 33.8 % (36.0-47.0); MEAN CORPUSCULAR HEMOGLOBIN 30.1 pg (27.0-33.0); MEAN CORPUSCULAR HGB CONC 32.5 g/dl (32.0-36.5); MEAN CORPUSCULAR VOLUME 92.3 fl (80.0-96.0); PLATELET COUNT, AUTOMATED 284 10^3/uL (150-450); RED BLOOD COUNT 3.66 10^6/uL (4.00-5.40)
[2021-04-15 13:29] LABS: BLOOD UREA NITROGEN 7 MG/DL (7-18); CALCIUM LEVEL 8.8 MG/DL (8.8-10.2); CARBON DIOXIDE LEVEL 29 MEQ/L (21-32); CHLORIDE LEVEL 99 MEQ/L (98-107); CREATININE FOR GFR 0.84 MG/DL (0.55-1.30); GLOMERULAR FILTRATION RATE > 60.0 (>32); GLUCOSE, FASTING 78 MG/DL (70-100); NT-PRO BNP 535 PG/ML (<450); POTASSIUM SERUM 4.3 MEQ/L (3.5-5.1); SODIUM LEVEL 134 MEQ/L (136-145)
== END ==
PROVIDERS: ATTEND Physician Assistant
DX: I50.9 Heart failure, unspecified (principal)

== ENCOUNTER → 2021-05-18 | Outpatient (REF) | payer MEDICARE, MEDICAID ==
[~2021-05-18] MED LIST changes: -LOSA25TA13 PO; +LOSA25TA14 PO
[2021-05-18 11:31] LABS: HEMATOCRIT 33.2 % (36.0-47.0); HEMOGLOBIN 11.3 g/dl (12.0-15.5); PLATELET COUNT, AUTOMATED 275 10^3/uL (150-450); RED BLOOD COUNT 3.65 10^6/uL (4.00-5.40); WHITE BLOOD COUNT 4.8 10^3/uL (4.0-10.0)
[2021-05-18 12:38] LABS: BLOOD UREA NITROGEN 11 MG/DL (7-18); CALCIUM LEVEL 8.2 MG/DL (8.8-10.2); CARBON DIOXIDE LEVEL 24 MEQ/L (21-32); CHLORIDE LEVEL 97 MEQ/L (98-107); CREATININE FOR GFR 0.84 MG/DL (0.55-1.30); GLOMERULAR FILTRATION RATE > 60.0 (>32); GLUCOSE, FASTING 137 MG/DL (70-100); POTASSIUM SERUM 3.9 MEQ/L (3.5-5.1); SODIUM LEVEL 131 MEQ/L (136-145)
== END ==
PROVIDERS: ATTEND Internal Medicine
DX: I50.9 Heart failure, unspecified (principal)

== ENCOUNTER → 2021-06-17 | Outpatient (REF) | payer MEDICARE, MEDICAID ==
[2021-06-17 10:42] LABS: HEMATOCRIT 37.8 % (36.0-47.0); HEMOGLOBIN 12.9 g/dl (12.0-15.5); MEAN CORPUSCULAR HEMOGLOBIN 31.7 pg (27.0-33.0); MEAN CORPUSCULAR HGB CONC 34.1 g/dl (32.0-36.5); MEAN CORPUSCULAR VOLUME 92.9 fl (80.0-96.0); PLATELET COUNT, AUTOMATED 346 10^3/uL (150-450); RED BLOOD COUNT 4.07 10^6/uL (4.00-5.40); WHITE BLOOD COUNT 7.1 10^3/uL (4.0-10.0)
[2021-06-17 11:25] LABS: CALCIUM LEVEL 8.4 MG/DL (8.8-10.2); CREATININE FOR GFR 1.17 MG/DL (0.55-1.30); GLOMERULAR FILTRATION RATE 46.7 (>32); POTASSIUM SERUM 4.2 MEQ/L (3.5-5.1)
== END ==
PROVIDERS: ATTEND Internal Medicine
DX: I50.9 Heart failure, unspecified (principal)

== ENCOUNTER → 2021-06-23 | Outpatient (REF) | payer MEDICARE, MEDICAID ==
[2021-06-23 18:30] LABS: HEMATOCRIT 36.6 % (36.0-47.0); HEMOGLOBIN 12.1 g/dl (12.0-15.5); MEAN CORPUSCULAR HEMOGLOBIN 30.6 pg (27.0-33.0); MEAN CORPUSCULAR HGB CONC 33.1 g/dl (32.0-36.5); MEAN CORPUSCULAR VOLUME 92.7 fl (80.0-96.0); PLATELET COUNT, AUTOMATED 331 10^3/uL (150-450); RED BLOOD COUNT 3.95 10^6/uL (4.00-5.40); WHITE BLOOD COUNT 5.3 10^3/uL (4.0-10.0)
[2021-06-23 18:56] LABS: BLOOD UREA NITROGEN 8 MG/DL (7-18); CALCIUM LEVEL 8.3 MG/DL (8.8-10.2); CARBON DIOXIDE LEVEL 26 MEQ/L (21-32); CHLORIDE LEVEL 100 MEQ/L (98-107); CREATININE FOR GFR 0.88 MG/DL (0.55-1.30); GLOMERULAR FILTRATION RATE > 60.0 (>32); GLUCOSE, FASTING 95 MG/DL (70-100); POTASSIUM SERUM 3.9 MEQ/L (3.5-5.1); SODIUM LEVEL 136 MEQ/L (136-145)
== END ==
PROVIDERS: ATTEND Internal Medicine
DX: N17.9 Acute kidney failure, unspecified (principal)

== ENCOUNTER → 2021-06-23 | Outpatient (REF) | payer MEDICARE, MEDICAID | PROVIDERS: ATTEND Internal Medicine | DX: R41.82 Altered mental status, unspecified (principal); N17.9 Acute kidney failure, unspecified ==

== ENCOUNTER → 2021-06-29 | Outpatient (REF) | payer MEDICARE, MEDICAID | PROVIDERS: ATTEND Internal Medicine | DX: N39.0 Urinary tract infection, site not specified (principal); Z53.8 Procedure and treatment not carried out for other reasons ==

== ENCOUNTER → 2021-07-15 | Outpatient (REF) | payer MEDICARE, MEDICAID ==
[2021-07-15 10:43] LABS: HEMATOCRIT 36.7 % (36.0-47.0); HEMOGLOBIN 12.1 g/dl (12.0-15.5); MEAN CORPUSCULAR HEMOGLOBIN 30.1 pg (27.0-33.0); MEAN CORPUSCULAR VOLUME 91.3 fl (80.0-96.0); PLATELET COUNT, AUTOMATED 370 10^3/uL (150-450); RED BLOOD COUNT 4.02 10^6/uL (4.00-5.40); WHITE BLOOD COUNT 8.5 10^3/uL (4.0-10.0)
[2021-07-15 12:14] LABS: CALCIUM LEVEL 8.7 MG/DL (8.8-10.2); CREATININE FOR GFR 1.54 MG/DL (0.55-1.30); POTASSIUM SERUM 3.4 MEQ/L (3.5-5.1)
== END ==
PROVIDERS: ATTEND Physician Assistant
DX: G40.909 Epilepsy, unspecified, not intractable, without status epilepticus (principal); I50.9 Heart failure, unspecified

== ENCOUNTER → 2021-07-17 | Outpatient (REF) | payer MEDICARE, MEDICAID ==
[2021-07-17 11:06] LABS: CALCIUM LEVEL 8.2 MG/DL (8.8-10.2); CREATININE FOR GFR 1.04 MG/DL (0.55-1.30); GLOMERULAR FILTRATION RATE 53.5 (>32); POTASSIUM SERUM 3.8 MEQ/L (3.5-5.1)
== END ==
PROVIDERS: ATTEND Internal Medicine
DX: E87.6 Hypokalemia (principal)

== ENCOUNTER → 2021-07-20 | Outpatient (REF) | payer MEDICARE, MEDICAID ==
[2021-07-20 10:15] LABS: HEMATOCRIT 38.3 % (36.0-47.0); HEMOGLOBIN 12.3 g/dl (12.0-15.5); MEAN CORPUSCULAR HGB CONC 32.1 g/dl (32.0-36.5); MEAN CORPUSCULAR VOLUME 96.5 fl (80.0-96.0); PLATELET COUNT, AUTOMATED 180 10^3/uL (150-450); RED BLOOD COUNT 3.97 10^6/uL (4.00-5.40); WHITE BLOOD COUNT 6.4 10^3/uL (4.0-10.0)
[2021-07-20 10:38] LABS: BLOOD UREA NITROGEN 9 MG/DL (7-18); CALCIUM LEVEL 9.1 MG/DL (8.8-10.2); CARBON DIOXIDE LEVEL 30 MEQ/L (21-32); CHLORIDE LEVEL 103 MEQ/L (98-107); GLOMERULAR FILTRATION RATE > 60.0 (>32); GLUCOSE, FASTING 108 MG/DL (70-100); POTASSIUM SERUM 3.5 MEQ/L (3.5-5.1); SODIUM LEVEL 139 MEQ/L (136-145)
== END ==
PROVIDERS: ATTEND Physician Assistant
DX: N17.9 Acute kidney failure, unspecified (principal)

== ENCOUNTER → 2021-08-12 | Outpatient (REF) | payer MEDICARE, MEDICAID ==
[2021-08-12 11:37] LABS: HEMOGLOBIN 10.9 g/dl (12.0-15.5); MEAN CORPUSCULAR HGB CONC 32.1 g/dl (32.0-36.5); MEAN CORPUSCULAR VOLUME 93.7 fl (80.0-96.0); PLATELET COUNT, AUTOMATED 186 10^3/uL (150-450); RED BLOOD COUNT 3.63 10^6/uL (4.00-5.40); WHITE BLOOD COUNT 7.5 10^3/uL (4.0-10.0)
[2021-08-12 12:11] LABS: CALCIUM LEVEL 7.4 MG/DL (8.8-10.2); CREATININE FOR GFR 1.48 MG/DL (0.55-1.30); GLOMERULAR FILTRATION RATE 35.6 (>32); POTASSIUM SERUM 4.4 MEQ/L (3.5-5.1)
== END ==
PROVIDERS: ATTEND Internal Medicine
DX: I50.9 Heart failure, unspecified (principal)

== ENCOUNTER → 2021-08-14 | Outpatient (REF) | payer MEDICARE, MEDICAID ==
[2021-08-14 17:13] LABS: CK-MB VALUE MASS 1.8 NG/ML (<3.6); CPK CREATINE PHOSPHOKINASE 84 U/L (26-192); MB/CK RELATIVE INDEX 2.14 (< OR =4); TROPONIN I < 0.02 NG/ML (< 0.10)
[2021-08-14 19:45] LABS: CALCIUM LEVEL 7.7 MG/DL (8.8-10.2); CREATININE FOR GFR 1.96 MG/DL (0.55-1.30); GLOMERULAR FILTRATION RATE 25.7 (>32); POTASSIUM SERUM 4.3 MEQ/L (3.5-5.1)
== END ==
PROVIDERS: ATTEND Internal Medicine
DX: K92.1 Melena (principal); R55 Syncope and collapse

== ENCOUNTER → 2021-08-14 | Outpatient (REF) | payer MEDICARE, MEDICAID | PROVIDERS: ATTEND Internal Medicine | DX: Z53.9 Procedure and treatment not carried out, unspecified reason (principal) ==

== ENCOUNTER → 2021-08-14 | Outpatient (REF) | payer MEDICARE, MEDICAID ==
[2021-08-14 16:58] LABS: HEMATOCRIT 31.6 % (36.0-47.0); HEMOGLOBIN 10.3 g/dl (12.0-15.5); MEAN CORPUSCULAR HEMOGLOBIN 29.9 pg (27.0-33.0); MEAN CORPUSCULAR HGB CONC 32.6 g/dl (32.0-36.5); MEAN CORPUSCULAR VOLUME 91.9 fl (80.0-96.0); PLATELET COUNT, AUTOMATED 177 10^3/uL (150-450); RED BLOOD COUNT 3.44 10^6/uL (4.00-5.40)
== END ==
PROVIDERS: ATTEND Internal Medicine
DX: R55 Syncope and collapse (principal)

== ENCOUNTER → 2021-08-15 | Outpatient (REF) | payer MEDICARE, MEDICAID | PROVIDERS: ATTEND Internal Medicine | DX: D64.9 Anemia, unspecified (principal); R55 Syncope and collapse ==

== ENCOUNTER → 2021-08-16 | Outpatient (REF) | payer MEDICARE, MEDICAID ==
[2021-08-16 10:59] LABS: HEMATOCRIT 29.3 % (36.0-47.0); HEMOGLOBIN 9.5 g/dl (12.0-15.5); MEAN CORPUSCULAR HEMOGLOBIN 29.9 pg (27.0-33.0); MEAN CORPUSCULAR HGB CONC 32.4 g/dl (32.0-36.5); MEAN CORPUSCULAR VOLUME 92.1 fl (80.0-96.0); PLATELET COUNT, AUTOMATED 170 10^3/uL (150-450); RED BLOOD COUNT 3.18 10^6/uL (4.00-5.40)
[2021-08-16 11:27] LABS: CALCIUM LEVEL 8.1 MG/DL (8.8-10.2); CREATININE FOR GFR 2.45 MG/DL (0.55-1.30); GLOMERULAR FILTRATION RATE 19.9 (>32); PERCENT SATURATION 33.7 % (13.2-45.0); POTASSIUM SERUM 3.8 MEQ/L (3.5-5.1)
== END ==
PROVIDERS: ATTEND Internal Medicine
DX: D64.9 Anemia, unspecified (principal)

== ENCOUNTER → 2021-08-17 | Outpatient (REF) | payer MEDICARE, MEDICAID ==
[2021-08-17 10:51] LABS: HEMATOCRIT 29.2 % (36.0-47.0); HEMOGLOBIN 9.4 g/dl (12.0-15.5); MEAN CORPUSCULAR HGB CONC 32.2 g/dl (32.0-36.5); MEAN CORPUSCULAR VOLUME 93.3 fl (80.0-96.0); PLATELET COUNT, AUTOMATED 192 10^3/uL (150-450); RED BLOOD COUNT 3.13 10^6/uL (4.00-5.40); WHITE BLOOD COUNT 8.9 10^3/uL (4.0-10.0)
[2021-08-17 11:27] LABS: CALCIUM LEVEL 8.1 MG/DL (8.8-10.2); CREATININE FOR GFR 2.29 MG/DL (0.55-1.30); GLOMERULAR FILTRATION RATE 21.5 (>32); POTASSIUM SERUM 3.5 MEQ/L (3.5-5.1)
== END ==
PROVIDERS: ATTEND Internal Medicine
DX: I50.9 Heart failure, unspecified (principal)